=== PATIENT | female | born 1935 | race Caucasian/White ===

== ENCOUNTER 2016-08-31 07:17 | Inpatient (IN) | payer OTHER ==
[2016-08-31] MEDS ORDERED: DIAZEPAM 5 MG TAB PO ONE (07:26)
[2016-08-31] MEDS ORDERED: diphenhydrAMINE 25 MG CAP PO ONE (07:26)
[2016-08-31] MEDS ORDERED: ASPIRIN EC 325 MG TAB PO ONE (07:26)
[2016-08-31] MEDS ORDERED: FAMOTIDINE 20 MG TAB PO ONE (07:26)
[2016-08-31] MEDS ORDERED: NS 1,000 ML IV ONE (07:26)
--- NOTE | 2016-08-31 07:44 | CPEKG ---
Heart Rate: 77 RR Interval: 779 P-R Interval: 121 QRSD Interval: 148 QT Interval: 488 QTC Interval: 553 P Avis: 50 QRS Avis: 0 EKG Severity - ABNORMAL ECG - EKG Impression: ATRIAL-SENSED VENTRICULAR-PACED RHYTHM Electronically Signed By: Bin Tolbert 31-Aug-2016 07:46:24
[2016-08-31 08:12] LABS: % IMMATURE GRANULYOCYTES 0.4 % (0.0-1.1); ABSOLUTE IMMATURE GRANULOCYTES 0.02 10^3/uL (0.00-0.10); ADD DIFF? NO; ADD MORPH? NO; ADD SCAN? NO; ATYPICAL LYMPHOCYTE FLAG 10 (0-99); FRAGMENT RBC FLAG 0 (0-99); HEMOGLOBIN 12.8 g/dL (12.6-16.3); LEFT SHIFT FLG 0 (0-99); LIPEMIA HEMOLYSIS FLAG 90 (0-99); MEAN CELL HEMOGLOBIN 32.3 pg (27.9-34.1); MEAN CELL HEMOGLOBIN CONCENTR. 34.6 g/dL (32.4-36.7); MEAN CELL VOLUME 93.4 fL (81.5-99.8); MEAN PLATELET VOLUME 9.3 fL (8.7-11.7); PLATELET CLUMPS FLAG 0 (0-99); PLATELET COUNT 190 10^3/uL (150-400); RED BLOOD CELL COUNT 3.96 10^6/uL (4.18-5.33); RED CELL DISTRIBUTION WIDTH 11.6 % (11.5-15.2)
[2016-08-31 08:21] LABS: PROTIME(PATIENT) 13.1 SEC (12.0-15.0)
[2016-08-31 08:33] LABS: ANION GAP 12 mEq/L (8-16); CALCIUM 9.1 mg/dL (8.5-10.4); CARBON DIOXIDE 26 mEq/l (22-31); CHLORIDE 104 mEq/L (97-110); CHOLESTEROL 202 mg/dL (140-220); CHOLESTEROL/HDL RATIO 4.93 RATIO (1.00-4.44); CREATININE 0.7 mg/dL (0.6-1.0); GLOMERULAR FILTRATION RATE > 60; GLUCOSE 102 mg/dL (70-100); HIGH DENSITY LIPOPROTEIN 41 mg/dL (40-85); LDL/HDL RATIO 3.15 RATIO (1.00-3.22); LOW DENSITY LIPOPROTEIN 129 mg/dL (80-100); MAGNESIUM 2.2 mg/dL (1.6-2.3); NON-HIGH DENSITY LIPOPROTEIN 161 mg/dL (90-129); POTASSIUM 4.3 mEq/L (3.5-5.2); SODIUM 142 mEq/L (134-144); TRIGLYCERIDE 160 mg/dL (35-135); VERY LOW DENSITY LIPOPROTEINS 32 mg/dL (8-25)
[2016-08-31] MEDS ORDERED: IOPAMIDOL (ISOVUE-370) 150 ML BTL IV ONE ×4 (09:04→10:43)
[2016-08-31] MEDS ORDERED: fentaNYL 100 MCG/2 ML INJ ONE ×2 (09:04→10:30)
[2016-08-31] MEDS ORDERED: MIDAZOLAM 2 MG/2 ML VIAL ONE (09:04)
[2016-08-31] MEDS ORDERED: LIDOCAINE 1% 300 MG/30 ML SDV ONE (09:04)
[2016-08-31] MEDS ORDERED: BIVALIRUDIN 250 MG/5 ML VIAL IV ONE ×2 (09:42→10:44)
[2016-08-31] MEDS ORDERED: NITROGLYCERIN 1,500 MCG/15 ML VIAL MISC ONE (09:42)
--- NOTE | 2016-08-31 10:02 | PDDXCAT ---
Diagnostic Cath Note - . Date: 08/31/16 Impregnator And Drier: Dayanna Indication: Class I/II angina, intolerance to med therapy or failure to respond High-risk criteria on non-invasive testing: stress-induced moderate-size multiple perfusion defects - Procedure Access: right groin Procedure: left heart catheterization, coronary angiography, left ventriculogram - Materials Left Heart Cath size: 6F Left Heart Cath materials: standard multipack (JL4, JR4, pigtail) - Findings-Left Heart Catheterization LM: short, bifurcation into the LAD and LCX. no luminal irregularities noted LAD: medium sized vessel with two diagonals. just proximal to D1, there is a critical lesion (>80%). There was some ostial D1 disease as well (50%). D2 is smallish, but without luminal irregularities. tortuosity is noted distally LCX: dominant vessel with two principal obtuse marginals. Large diameter vessel. There was a 50% lesion to the ostial/proximal OM1. Distal tortuosity noted. No luminal irregularities to the remainder of the LCX system. LCX supplies the PDA territory RCA: Small diameter vessel. No luminal irregularities noted. Minor tortuosity appreciated. EDP: 27 mm Hg LVEF: 40-45% Wall motion: Anterior hypokinesis was noted. Mild global hypokinsis as well. Complications: none Estimated blood loss: <50ml Assessment: Critical lesion to the mid LAD (in the territory of the perfusion defect on MPI). Mild reduction in LVEF (40-45%) with anterior hypokinesis noted. Plan: Dr. Flip Truong to perform PCI to the proximal LAD lesion Intervention: pending to mid proximal LAD
[2016-08-31] MEDS ORDERED: NITROGLYCERIN/D5W 50 MG/250 ML BOTTLE IV ONE (11:02)
[2016-08-31] MEDS ORDERED: PRASUGREL HCL 10 MG TAB ONE (11:10)
[2016-08-31] MEDS ORDERED: TEMAZEPAM 15 MG CAP PO PRN (11:18)
[2016-08-31] MEDS ORDERED: NITROGLYCERIN 0.4 MG BTL SL PRN (11:18)
[2016-08-31] MEDS ORDERED: ACETAMINOPHEN 325 MG TAB PO PRN (11:18)
[2016-08-31] MEDS ORDERED: PRASUGREL HCL 10 MG TAB PO ONE (11:18)
[2016-08-31] MEDS ORDERED: HYDROCODONE/APAP 5/325 TAB PO PRN (11:18)
[2016-08-31] MEDS ORDERED: ATROPINE SULFATE 1 MG/10 ML SYR IVP PRN (11:18)
[2016-08-31] MEDS ORDERED: NS 1,000 ML IV SCH (11:30)
[2016-08-31] MEDS ORDERED: EPTIFIBATIDE 100 ML IV SCH (11:30)
--- NOTE | 2016-08-31 11:52 | CPEKG ---
Heart Rate: 87 RR Interval: 690 P-R Interval: 128 QRSD Interval: 174 QT Interval: 488 QTC Interval: 587 P Guinda: 49 QRS Guinda: 0 T Wave Guinda: 44 EKG Severity - ABNORMAL ECG - EKG Impression: ATRIAL-SENSED VENTRICULAR-PACED RHYTHM Electronically Signed By: Bin Tolbert 31-Aug-2016 15:07:20
[2016-08-31 12:29] LABS: CREATINE KINASE-MB FRACTION 0.27 ng/mL (0-3.19)
[2016-08-31] MEDS ORDERED: NITROGLYCERIN/DEXTROSE 250 ML IV SCH (12:30)
--- NOTE | 2016-08-31 13:15 | CPIP ---
[f rep st] INVASIVE CARDIAC PROCEDURE PROCEDURE PERFORMED: Percutaneous coronary intervention of the left anterior descending. INDICATIONS: Please refer to the diagnostic cardiac cath report dictated by Dr. Kurt Alan. Brief ly, the patient is a 80-year-old female with a history of nonischemic cardiomyopathy (status post bi ventricular pacemaker/defibrillator implantation), hyperlipidemia, and hypertension. She underwent evaluation for worsening dyspnea with exertion, and a pharmacologic nuclear stress test demonstrated a moderate area of anteroseptal ischemia. Diagnostic cardiac catheterization was performed which d emonstrated relatively preserved LV systolic function with an ejection fraction of at least 50%. Th e circumflex and RCA were free of any significant atherosclerosis. The kjzjzvqa-dt-olw LAD had a 70 % to 80% stenosis. The diseased area of the LAD included the origins of 2 mpzkd-uc-tilhdm sized candace gonal branches. The decision was made to perform percutaneous coronary intervention of the left ant erior descending. DETAILS OF PROCEDURE: The patient received intravenous Angiomax. The previously placed 6-Fijian sh eath in the right femoral artery was exchanged for a 7-Fijian sheath. A 7-Fijian CLS 3.5 guide cath eter was advanced to the left main. An Intuition guidewire was advanced to the distal LAD. Pre-dil atation of the lesion in the mshqeqqm-uw-jlr LAD was performed using a 2.75 x 10 mm cutting balloon. A 3.0 x 20 mm Synergy stent was then positioned and deployed at high pressure. Subsequent angiogr ams demonstrated 0% residual stenosis at the target lesion. The qwxga-zy-wcxeqh size 1st and 2nd di agonal branches were now occluded. Additionally, it was now also noted that there was a wire dissec tion at a significant curvature in the sgb-ql-jfipfa LAD with significant luminal compromise. The g uidewire was withdrawn into the mid LAD but left beyond the stented segment. A 2nd Intuition guidew gillian was advanced into the left anterior descending and was successfully negotiated into the distal L AD. The LAD now demonstrated complete occlusion at the junction of the mid and distal thirds. Ball oon inflations were performed at the site of the total occlusion using a 2.5 x 12 mm Emerge balloon. Minimal anterograde flow was restored. A 2.5 x 24 mm Synergy stent was advanced to the junction o f the mid and distal thirds of the LAD and was deployed at high pressure. This restored the true elidia men within the stented segment, but the apical portion of the LAD remained occluded. Additional inf lations were performed using the 2.5 x 12 mm Emerge balloon just distal to the stented segment, but no significant anterograde flow was restored. The initial Intuition guidewire was then inserted suc cessively into the 1st and 2nd diagonal branches. A 2.0 x 8 mm Emerge balloon was used to dilate th e ostia of both diagonal branches. However, anterograde flow was not restored. The patient remaine d hemodynamically stable. At this point, the procedure was terminated. CONCLUSIONS: 1. Successful percutaneous coronary intervention of the rlsniucn-vk-xmt left anterior descending us ing a single drug-coated stent. 2. Treatment of a guidewire-induced dissection in the ogi-dx-wplhtg left anterior descending using a single drug-coated stent; however, the apical portion of the left anterior descending remains occl uded. /[id number]/MODL
[2016-08-31] MEDS: CARVEDILOL 25 MG TAB PO SCH (18:22)
[2016-08-31 18:59] LABS: CK-MB INTERPRETATION POSITIVE (NEGATIVE)
[2016-08-31] MEDS: DULoxetine 60 MG CAP PO SCH (21:38)
--- NOTE | 2016-08-31 22:02 | CPEKG ---
Heart Rate: 90 RR Interval: 667 P-R Interval: 168 QRSD Interval: 160 QT Interval: 436 QTC Interval: 534 P Casselberry: -51 QRS Casselberry: -63 T Wave Casselberry: 38 EKG Severity - ABNORMAL ECG - EKG Impression: ATRIAL-SENSED VENTRICULAR-PACED RHYTHM Electronically Signed By: Bin Tolbert 01-Sep-2016 08:58:14
[2016-08-31] MEDS: NITROGLYCERIN 2% 1 GM PACKET TP SCH (23:30)
[2016-09-01 04:39] LABS: % IMMATURE GRANULYOCYTES 0.2 % (0.0-1.1); ABSOLUTE IMMATURE GRANULOCYTES 0.02 10^3/uL (0.00-0.10); ADD DIFF? NO; ADD MORPH? NO; ADD SCAN? NO; ATYPICAL LYMPHOCYTE FLAG 0 (0-99); FRAGMENT RBC FLAG 0 (0-99); HEMOGLOBIN 13.2 g/dL (12.6-16.3); LEFT SHIFT FLG 10 (0-99); LIPEMIA HEMOLYSIS FLAG 90 (0-99); MEAN CELL HEMOGLOBIN 31.7 pg (27.9-34.1); MEAN CELL HEMOGLOBIN CONCENTR. 33.8 g/dL (32.4-36.7); MEAN CELL VOLUME 93.8 fL (81.5-99.8); MEAN PLATELET VOLUME 9.5 fL (8.7-11.7); PLATELET CLUMPS FLAG 0 (0-99); PLATELET COUNT 188 10^3/uL (150-400); RED BLOOD CELL COUNT 4.16 10^6/uL (4.18-5.33); RED CELL DISTRIBUTION WIDTH 11.7 % (11.5-15.2)
[2016-09-01 04:46] LABS: ALBUMIN 4.5 g/dL (3.5-5.0); ANION GAP 13 mEq/L (8-16); ASPARTATE AMINOTRANSFERASE 304 IU/L (14-46); BILIRUBIN,TOTAL 0.5 mg/dL (0.1-1.4); CARBON DIOXIDE 29 mEq/l (22-31); CHLORIDE 100 mEq/L (97-110); CREATININE 0.7 mg/dL (0.6-1.0); GLOMERULAR FILTRATION RATE > 60; GLUCOSE 133 mg/dL (70-100); LACTATE DEHYDROGENASE 1193 IU/L (313-618); MAGNESIUM 2.2 mg/dL (1.6-2.3); POTASSIUM 4.5 mEq/L (3.5-5.2); SODIUM 142 mEq/L (134-144)
[2016-09-01 04:56] LABS: CK-MB INTERPRETATION POSITIVE (NEGATIVE)
[2016-09-01] MEDS: NITROGLYCERIN 2% 1 GM PACKET TP SCH ×3 (05:23→17:51)
--- NOTE | 2016-09-01 09:01 | CPEKG ---
Heart Rate: 96 RR Interval: 625 P-R Interval: 124 QRSD Interval: 166 QT Interval: 428 QTC Interval: 541 P Thomson: -66 QRS Thomson: 140 T Wave Thomson: 35 EKG Severity - ABNORMAL ECG - EKG Impression: ATRIAL-SENSED VENTRICULAR-PACED RHYTHM Electronically Signed By: Bin Tolbert 01-Sep-2016 09:47:44
[2016-09-01] MEDS: ONDANSETRON 4 MG/2 ML VIAL IVP PRN (09:23)
[2016-09-01] MEDS: amLODIPine BESYLATE 5 MG TAB PO SCH (09:24)
[2016-09-01] MEDS: CALCIUM CARB W/VIT D 500 MG TAB PO SCH (09:24)
[2016-09-01] MEDS: CARVEDILOL 25 MG TAB PO SCH ×2 (09:24→17:51)
[2016-09-01] MEDS: EZETIMIBE 10 MG TAB PO SCH (09:24)
[2016-09-01] MEDS: ASPIRIN EC 325 MG TAB PO SCH (09:24)
[2016-09-01] MEDS: PRASUGREL HCL 10 MG TAB PO SCH (09:24)
[2016-09-01] MEDS: VALSARTAN 40 MG TAB PO SCH (10:03)
[2016-09-01 12:53] LABS: CK-MB INTERPRETATION POSITIVE (NEGATIVE)
--- NOTE | 2016-09-01 13:13 | ECHO ---
[id number] + + [address] : : [place] [address] : : [phone] + + Adult Echocardiographic Report + -----+ :Name: GREGORY NUNES LStudy Date: 09/01/2016 12:40 PM : : Hospital Admission Number: [id number] Location : 245: :: 1935 Gender: Female : :Age: 80 yrs Race: WH : :Reason For Study: Post stent/Eval for pericardial effusion : + -----+ Left Ventricle The left ventricle is normal in size. There is normal left ventricular wall thickness. The left ventricular ejection fraction is normal. The left ventricular wall motion is normal. Right Ventricle The right ventricle is grossly normal size. There is a pacemaker lead in the right ventricle. The right ventricular systolic function is normal. Pericardium/Pleural Fat pad vs. trace pericardial effusion. Conclusion Limited 2-D echo. Limited views available for evaluation - implants. (1) Normal left ventricular systolic ejection fraction (2) Normal chamber dimensions (3) Pericardial fat pat - no evidence for pericardial effusion Final Reading Physician: Joan Salas signed on 09/01/2016 01:11 PM Ordering Physician: Kurt Alan Performed By: Elizabeth Graves RDCS
--- NOTE | 2016-09-01 13:54 | PDCARPN ---
Cardiology Progress Note Chief Complaint: Chest pains were noted overnight Assessment/Plan: Assessment: Patient is a 80 y/o female with history of non ischaemic CMP in the past (with ICD), SSS s/p ICD (pacing), HTN, and HLP, who presented to [facility] for scheduled angiogram given shortness of breath with an abnormal stress test. Angiogram yesterday with a critical lesion to the proximal/mid LAD and PCI was performed. Distally, there was a dissection noted from the guide wire, and second PCI was successfully performed. In proximity to the more proximal stent, "jailing" of two diagonals (small) was also noted. Chest pains were noted through the night, and treated with morphine. Today, the patient reports that she is feeling well, but continues to have some degree of chest pains when the pain medications wear off. Echocardiogram (limited) was performed to ensure no new changes (pericardial effusion or new wall motion abnormalities). Limitations to wall motion were noted given past chest surgery. No significant pericardial effusion was noted. Elevation to cardiac biomarkers was noted (and expected) with peak troponin (at present) to 32.1. Plan: (1) Maintain therapy on ASA and Effient given the newly stented LAD (2) Diovan, Coreg, and Norvasc to continue for HTN management assistance (3) Zetia should continue for assistance with HLP history (4) Will monitor labs to ensure that the troponin levels are trending down ( normalizing) (5) Patient will need cardiac rehab Subjective: Ongoing chest discomfort is reported, but controlled with medical therapy Objective: Vital Signs (8 Hrs) Temp Pulse Resp BP Pulse Ox 09/01/16 12:00 36.6 C 90 16 116/59 L 95 09/01/16 07:52 36.6 C 100 16 125/69 H 98 Intake/Output (24 Hrs) 08/31/16 09/01/16 09/02/16 05:59 05:59 05:59 Intake Total 365.6 Output Total 1400 Balance -1034.4 Intake: Oral (ml) 350 IV Infused (ml) 15.6 Nitroglycerin/Dextrose 15.6 250 ml @ 3 mls/hr IV CONT NEL Rx#:[id number] Output: Urine (ml) 1400 Bedpan 400 Bedside Commode 1000 Other: Weight 81.6 kg 83.6 kg Number of Voids Bedpan 1 Incontinence 3 Result Diagrams: 09/01/16 04:10 09/01/16 04:10 Cardiac Labs: Cardiac Lab Results (72 Hrs) 09/01/16 09/01/16 09/01/16 12:10 08:01 04:10 CK-MB (CK-2) Fraction 107.00 H 140.00 H Troponin I 32.100 H 31.500 H 08/31/16 08/31/16 08/31/16 22:00 18:28 11:40 CK-MB (CK-2) Fraction 49.60 H 0.27 Troponin I 25.900 H EKG: A sense V pacing Echocardiogram: No appreciable pericardial effusion was noted Wall motion assessment not possible given chest wall artifact - Physical Exam Constitutional: WDWN, healthy appearing, no apparent distress Eyes: PERRL, EOMI Ears, Nose, Mouth, Throat: moist mucous membranes Cardiovascular: regular rate and rhythm, no murmurs, no rubs Peripheral Pulses: 2+: dorsalis-pedis (R), dorsalis-pedis (L) Respiratory: clear to auscultate bilat, no crackles Gastrointestinal: normoactive bowel sounds Skin: no rashes, no edema Musculoskeletal: no muscular tenderness Neurologic: AAOx3, CN II-XII grossly intact Psychiatric: cooperative, interactive, following commands ICD10 Worksheet Patient Problems: Problems Problem Status Onset Coronary artery disease Acute
[2016-09-01] MEDS: DULoxetine 60 MG CAP PO SCH (20:30)
[2016-09-02] MEDS: NITROGLYCERIN 2% 1 GM PACKET TP SCH ×3 (00:13→13:24)
[2016-09-02 05:02] LABS: CK-MB INTERPRETATION POSITIVE (NEGATIVE)
[2016-09-02] MEDS: ASPIRIN EC 325 MG TAB PO SCH (08:23)
[2016-09-02] MEDS: PRASUGREL HCL 10 MG TAB PO SCH (08:24)
[2016-09-02] MEDS: EZETIMIBE 10 MG TAB PO SCH (08:24)
[2016-09-02] MEDS: CALCIUM CARB W/VIT D 500 MG TAB PO SCH (08:24)
[2016-09-02] MEDS: amLODIPine BESYLATE 5 MG TAB PO SCH (08:25)
[2016-09-02] MEDS: VALSARTAN 40 MG TAB PO SCH (08:25)
[2016-09-02] MEDS: CARVEDILOL 25 MG TAB PO SCH ×2 (08:25→19:04)
[2016-09-02] MEDS: ONDANSETRON 4 MG/2 ML VIAL IVP PRN (08:28)
--- NOTE | 2016-09-02 10:25 | PDCARPN ---
Cardiology Progress Note Chief Complaint: No cardiovascular complaints were voiced today. Mild shoulder pains were noted today. Good sleep overnight. Assessment/Plan: Assessment: 09-02-16 Patient doing better today. Yesterday, chest pains were still being noted. Today, there is mild bilateral shoulder pains. Troponin has continued to trend down. Limited ambulation (given the ICU/step down status, and poor sleep from the night before). 09-01-16 Patient is a 80 y/o female with history of non ischaemic CMP in the past (with ICD), SSS s/p ICD (pacing), HTN, and HLP, who presented to [facility] for scheduled angiogram given shortness of breath with an abnormal stress test. Angiogram yesterday with a critical lesion to the proximal/mid LAD and PCI was performed. Distally, there was a dissection noted from the guide wire, and second PCI was successfully performed. In proximity to the more proximal stent, "jailing" of two diagonals (small) was also noted. Chest pains were noted through the night, and treated with morphine. Today, the patient reports that she is feeling well, but continues to have some degree of chest pains when the pain medications wear off. Echocardiogram (limited) was performed to ensure no new changes (pericardial effusion or new wall motion abnormalities). Limitations to wall motion were noted given past chest surgery. No significant pericardial effusion was noted. Elevation to cardiac biomarkers was noted (and expected) with peak troponin (at present) to 32.1. Plan: (1) Transfer of the patient from the ICU to the PCU today - possible discharge to home this evening - will continue to monitor telemetry (2) Would continue Norvasc, Diovan, and Coreg for history of HTN (3) ASA and Effient to continue (4) Outpatient follow up with cardiology in 1 week (5) Patient needs to have cardiac rehab set up prior to discharge Subjective: Shoulder pains are being noted. Reviewed/Discussed With: multidisciplinary team Objective: Vital Signs (8 Hrs) Temp Pulse Resp BP Pulse Ox 09/02/16 08:00 36.8 C 104 H 18 121/67 H 95 09/02/16 04:00 37.7 C 92 22 H 118/52 L 96 Intake/Output (24 Hrs) 09/01/16 09/02/16 09/03/16 05:59 05:59 05:59 Intake Total 365.6 380 Output Total 1400 1100 Balance -1034.4 -720 Intake: Oral (ml) 350 380 IV Infused (ml) 15.6 Nitroglycerin/Dextrose 15.6 250 ml @ 3 mls/hr IV CONT NEL Rx#:[id number] Output: Urine (ml) 1400 1100 Bedpan 400 Bedside Commode 1000 1100 Other: Weight 81.6 kg 83.6 kg Number of Voids Bedpan 1 Bedside Commode 2 Incontinence 3 Result Diagrams: 09/01/16 04:10 09/01/16 04:10 Cardiac Labs: Cardiac Lab Results (72 Hrs) 09/02/16 09/01/16 09/01/16 04:15 12:10 08:01 CK-MB (CK-2) Fraction 36.50 H 107.00 H Troponin I 16.800 H 32.100 H 09/01/16 08/31/16 08/31/16 04:10 22:00 18:28 CK-MB (CK-2) Fraction 140.00 H 49.60 H Troponin I 31.500 H 25.900 H 08/31/16 11:40 CK-MB (CK-2) Fraction 0.27 Troponin I Telemetry: Atrial sense V pace - Physical Exam Constitutional: WDWN, healthy appearing, no apparent distress Eyes: PERRL, EOMI Ears, Nose, Mouth, Throat: moist mucous membranes Cardiovascular: regular rate and rhythm, systolic murmur, No jugular vein distention Peripheral Pulses: 2+: dorsalis-pedis (R), dorsalis-pedis (L) Respiratory: clear to auscultate bilat, no crackles Gastrointestinal: normoactive bowel sounds Skin: no edema Musculoskeletal: muscular tenderness Neurologic: AAOx3, CN II-XII grossly intact Psychiatric: cooperative, interactive, following commands ICD10 Worksheet Patient Problems: Problems Problem Status Onset Coronary artery disease Acute
[2016-09-02] MEDS: DULoxetine 60 MG CAP PO SCH (20:05)
[2016-09-03 08:08] VITALS: TEMP 98.3
[2016-09-03] MEDS ORDERED: ATORVASTATIN CALCIUM 40 MG TAB PO SCH (09:30)
[2016-09-03] MEDS: CARVEDILOL 25 MG TAB PO SCH (10:07)
[2016-09-03] MEDS: ASPIRIN EC 325 MG TAB PO SCH (10:11)
[2016-09-03] MEDS: amLODIPine BESYLATE 5 MG TAB PO SCH (10:11)
[2016-09-03] MEDS: EZETIMIBE 10 MG TAB PO SCH (10:12)
[2016-09-03] MEDS: CALCIUM CARB W/VIT D 500 MG TAB PO SCH (10:12)
[2016-09-03] MEDS: VALSARTAN 40 MG TAB PO SCH (10:12)
[2016-09-03] MEDS: PRASUGREL HCL 10 MG TAB PO SCH (10:12)
--- NOTE | 2016-09-03 11:52 | GDS ---
[f rep st] DISCHARGE SUMMARY DISCHARGE DIAGNOSES: 1. Worsening dyspnea on exertion, found to have a 70% to 80% proximal LAD stenosis, status post PTC A and stenting, complicated by occlusion of the first and second diagonals, and wire dissection of t he mid to distal LAD with significant luminal compromise. This resulted in complete occlusion of th e mid and distal thirds of the LAD. Balloon inflations were performed at the site of the total occl usion, but minimal anterograde flow was restored. A Synergy stent was placed in the mid to distal t hirds, which restored the true lumen within the stented segment, but apical portion of the LAD remai sherri occluded. Despite additional ballooning, there was no significant antegrade flow restored. 2. History of nonischemic cardiomyopathy with a chronic left bundle branch block. 3. Biventricular permanent pacemaker. 4. Congregational of normal ejection fraction, status post biventricular pacer. 5. Dyslipidemia. 6. Hypertension. PROCEDURES: 1. Left heart catheterization. 2. Percutaneous intervention to LAD. 3. A 09/01/2016 echocardiogram, which showed normal ejection fraction. BRIEF HISTORY: Please see dictated history and physical from our office for complete details. In brief, the patient is a 80-year-old female with a history of nonischemic cardiomyopathy diagnosed 20 years ago, status post biventricular permanent pacemaker placement, chronic left bundle branch b lock, hypertension, dyslipidemia, nocturnal hypoxia, who presented to our office over the past few m onths with worsening dyspnea on exertion. She had a nuclear stress test done, which showed a mild a wil of moderate anteroseptal ischemia. She proceeded to a left heart catheterization for further ev aluation. 1. Abnormal MPI with progressively worsening dyspnea on exertion. She proceeded to left heart cath eterization, which showed the proximal to mid LAD stenosis. This was treated with PTCA and stenting , which resulted in occlusion of the small to moderate first and second diagonals. She also had a c omplication of a wire dissection requiring balloon and stenting. However, the apical portion remain ed occluded by the end of the procedure. Her troponin increased to 32. She was kept in-house for f urther observation due to ongoing chest pains requiring morphine. A limited echo showed no wall mot ion or pericardial effusion. She stabilized and transferred to telemetry. 2. Dyslipidemia. Her LDL is quite elevated at 129. We reviewed goal LDL, and she is agreeable to retry the atorvastatin. She has been on this in the past but that was several years ago. She does report that she noted myalgias on this. She is willing to see if symptoms recur at this point. She will need fasting lipids and CMP in 1 month's time. 3. Hypertension, blood pressures have actually been low. She is advised to hold her amlodipine for now. PHYSICAL EXAM: VITAL SIGNS: On day of discharge blood pressure 97/52, heart rate 94, respirations 14, O2 saturation 95% on 2 L. GENERAL: She is a very pleasant female in no apparent distress. YOUNG NT: Eyes are PERRL. HEART: Regular rate and rhythm. LUNGS: Clear. ABDOMEN: Soft with normoact may bowel sounds. Right groin site without ecchymosis, erythema or bruit. She has 1 to 2+ PT pulse s bilaterally. LABORATORY DATA: BMP with sodium 142, potassium 4.5, chloride 100, CO2 of 29, BUN 14, creatinine 0. 7, glucose 133, AST of 304. Peak troponin of 32. CBC with WBC of 8.42, hemoglobin 13.2, hematocrit 39, platelet count of 188. RESULTS PENDING: None. DIET: Cardiac. ACTIVITY: Groin precautions reviewed. She is also encouraged to join cardiac rehab. DISCHARGE MEDICATIONS: Please see medication reconciliation for complete details. She is being dis charged on the following agents: She is being started on atorvastatin 40 mg p.o. daily and Effient 10 mg p.o. daily. Her home carvedilol, valsartan, omeprazole, calcium, tramadol, melatonin, aspirin , and Cymbalta are being continued. She is being given a short prescription of [place]. She is advis ed to hold her amlodipine. DISCHARGE INSTRUCTIONS: 1. Followup with Dr. Alan as scheduled. 2. Followup CMP and lipids in 1 month's time. /[id number]/MODL
[2016-09-03 13:28] VITALS: BP 110/51; PULSE 96; RESP 16; O2SAT 92
[2016-09-05 15:51] LABS: 2C19S INTERPRETATION See Comments
== END 2016-09-03 13:34 | disposition home or self-care (01) | DRG 247 ==
LOC: FCATH 07:17 → F2W 11:25 → OBSVTOIN 11:25 → F2N 13:32 → F2W 09-02 11:23 → UNDODISIN 09-03 13:25
PROVIDERS: ADMIT Internal Medicine Interventional Cardiology; ATTEND Internal Medicine Cardiovascular Disease
PROC: B2151ZZ Fluoroscopy of Left Heart using Low Osmolar Contrast (ICD-10-PCS; principal; 2016-08-31)
PROC: B2111ZZ Fluoroscopy of Multiple Coronary Arteries using Low Osmolar Contrast (ICD-10-PCS; principal; 2016-08-31)
PROC: 4A023N7 Measurement of Cardiac Sampling and Pressure, Left Heart, Percutaneous Approach (ICD-10-PCS; principal; 2016-08-31)
PROC: 027034Z Dilation of Coronary Artery, One Artery with Drug-eluting Intraluminal Device, Percutaneous Approach (ICD-10-PCS; principal; 2016-08-31)
DX: I25.10 Atherosclerotic heart disease of native coronary artery without angina pectoris (principal); I42.9 Cardiomyopathy, unspecified; I44.7 Left bundle-branch block, unspecified; I10 Essential (primary) hypertension; E78.5 Hyperlipidemia, unspecified; Z95.0 Presence of cardiac pacemaker
CPT/HCPCS: 81225-90; C1725; C1760; C1769; C1874; C1887; C9600; J0583; J1644; J2250; J2405; J3010; Q9967

== ENCOUNTER → 2018-03-23 | Outpatient (CLI) | payer OTHER | LOC: CIMAGING 15:54 | PROVIDERS: ATTEND Physician Assistant Surgical | DX: M47.892 Other spondylosis, cervical region (principal); M89.38 Hypertrophy of bone, other site | CPT/HCPCS: 72050-PO ==

== ENCOUNTER 2018-04-06 13:35 | Inpatient (IN) | payer OTHER ==
[2018-04-06] MEDS ORDERED: ASPIRIN 81 MG CHEWABLE TAB PO ONE (13:51)
[2018-04-06] MEDS ORDERED: FUROSEMIDE 20 MG/2 ML VIAL IVP ONE (14:30)
[2018-04-06] MEDS ORDERED: NITROGLYCERIN 2% 1 GM PACKET TP ONE (14:32)
--- NOTE | 2018-04-06 15:12 | EDPHY ---
H & P Stated Complaint: SOB, midsternal chest pain x 1 month Time Seen by Provider: 04/06/18 13:45 HPI/ROS: This patient describes a 1 month history of gradually increasing dyspnea associated with paroxysmal nocturnal dyspnea over the past week. She reports dyspnea on exertion as well. She had an noticed significant orthopnea. She also describes sharp pains in her chest over the past few days, she describes this as brief pain that is been more frequent over the past 24 hr. She states that this is more prevalent when she is sitting up when she lies supine. She notes no other exacerbating factors. She had the pain shortly prior to arrival but resolved shortly after arrival here in during my interview she denies any chest pain. She is accompanied by her son. They came here by private vehicle. ROS: Constitutional: No fevers or chills. HEENT: She denies any recent URI symptoms. Pulmonary: She has occasional cough over the past month a but no significant sputum production. No hemoptysis. Cardiovascular: She has not noticed any heart palpitations. She denies any significant lower extremity swelling. GI: No recent nausea or vomiting. Denies abdominal pain : No urinary symptoms Integumentary: No diaphoresis Neuro: No headache. No confusion. No focal neuro symptoms 10 point review of symptoms is performed and otherwise negative with exception of pertinent positives and negatives listed in HPI and ROS Source: Patient Exam Limitations: No limitations - Personal History Current Tetanus Diphtheria and Acellular Pertussis (TDAP): Yes Tetanus Vaccine Date: within 10 year - Medical/Surgical History Hx Asthma: No Hx Chronic Respiratory Disease: No Hx Diabetes: No Hx Cardiac Disease: Yes Hx Renal Disease: No Hx Cirrhosis: No Hx Alcoholism: No Hx HIV/AIDS: No Hx Splenectomy or Spleen Trauma: No Other PMH: Pacemaker, back surgery, L breast cancer with bilat masectomy - Family History Significant Family History: No pertinent family hx - Social History Smoking Status: Former smoker Alcohol Use: None Drug Use: None - Physical Exam Exam: General Appearance: Alert, no distress. Eyes: Pupils equal and round no pallor or injection. ENT, Mouth: Mucous membranes moist. Respiratory: Diminished breath sounds at the bases. Appreciate no rales or rhonchi. Cardiovascular: Regular rate and rhythm. Gastrointestinal: Abdomen is soft and nontender, no masses, bowel sounds normal. Neurological: [ ] Skin: Warm and dry, no rashes. Musculoskeletal: Neck is supple nontender. Extremities are symmetrical, full range of motion. Psychiatric: Patient is oriented X 3, there is no agitation. DIFFERENTIAL DIAGNOSIS: After history and physical exam differential diagnosis was considered for [ ] Constitutional: Initial Vital Signs O2 Sat (%) 94 04/06/18 13:56 O2 (L/minute) 2 Allergies/Adverse Reactions: Sulfa (Sulfonamide Antibiotics) Allergy (Verified 04/06/18 13:41) Pt reports STOMACH PAIN ENVIRONMENTAL Allergy (Uncoded 04/06/18 13:41) Pt reports Congestion Home Medications: Medication Instructions Recorded Aspirin [Aspirin 81mg (*)] 05/28/14 Calcium Carbonate/Vitamin D3 05/28/14 [Calcium 600-Vit D3 200 Tablet] Carvedilol [Coreg (*)] 05/28/14 Melatonin [Melatonin 5 mg] 05/28/14 DULoxetine [Cymbalta 60 MG (*)] 08/31/16 traMADol [Ultram 50 mg (*)] 08/31/16 Atorvastatin Calcium [Lipitor 40 04/06/18 mg (*)] Effient 04/06/18 Medical Decision Making - Diagnostics EKG Interpretation: 12 lead EKG performed shortly after arrival indication chest pain at 1:49 p.m. Reveals AV paced with capture 107 no further analysis attempted due to pacemaker Imaging Results: Imaging Impressions Chest X-Ray 04/06/18 13:52 Impression: Moderate cardiomegaly with interstitial pulmonary edema. Bibasilar opacities likely represent pleural effusions with compressive atelectasis. Superimposed pneumonia is less likely unless patient demonstrates infectious symptoms. ED Course/Re-evaluation: IV, O2, monitor Aspirin 324 chewed 0.5 in nitropaste 20 mg of Lasix with diuresis I spoke with Dr. Idalmis Jacques, hospitalist at [facility] accepts the patient for transfer Discussion: Patient with history of coronary artery disease with stents and pacemaker with capture who presents with new onset of CHF gradual over the past month. She has atypical chest pains here within normal 1st troponin and normal D-dimer. Possibilities for etiology of this include recurrence of coronary syndrome versus dietary indiscretions with increased sodium intake, viral respiratory illness or other. Patient remains stable at 15 15 with PCU bed pending at the time of transfer to Dr. Vanegas. Discussed this patient's case with Dr. Vanegas At the time of sign-out patient is chest pain-free comfortable on nasal cannula O2 waiting a bed in transfer by EMS. - Data Points Laboratory Results: 04/06/18 04/06/18 04/06/18 14:02 14:01 13:55 POC Sodium 147 mEq/L H mEq/L (135-145) POC Potassium 3.6 mEq/L mEq/L (3.3-5.0) POC Chloride 105.0 mEq/L mEq/L (97-110) POC Total CO2 27 mEq/L mEq/L (22-31) POC BUN 17 mg/dL mg/dL (7-23) POC Creatinine 0.7 mg/dL mg/dL (0.6-1.0) POC Glucose 131 mg/dL H mg/dL (70-100) POC Calcium 9.2 mg/dL mg/dL (8.5-10.4) POC Troponin I 0.01 ng/mL ng/mL (0.00-0.08) NT-Pro-B Natriuret Pep Pending Medications Given: Discontinued Medications Aspirin (Aspirin) 324 mg PO EDNOW ONE Stop: 04/06/18 13:52 Last Admin: 04/06/18 13:59 Dose: 324 mg Furosemide (Lasix Injection) 20 mg IVP EDNOW ONE Stop: 04/06/18 14:31 Last Admin: 04/06/18 14:40 Dose: 20 mg Nitroglycerin (Nitro-Bid 2%) 0.5 inch TP EDNOW ONE Stop: 04/06/18 14:33 Last Admin: 04/06/18 14:40 Dose: 0.5 inch Point of Care Test Results: CBC CBC Collection Date 04/06/18 CBC Collection Time 13:55 WBC 6.2 RBC 4.15 HGB 13.2 HCT 38.8 PLT 191 Neut # 4.4 Neut 71.2 LYMPH # 1.3 LYMPH 21.2 Other WBC # 0.5 Other WBC 7.6 MCV 93.5 Chemistry 04/06/18 04/06/18 14:02 14:01 POC Sodium 147 mEq/L H mEq/L (135-145) POC Potassium 3.6 mEq/L mEq/L (3.3-5.0) POC Chloride 105.0 mEq/L mEq/L (97-110) POC Total CO2 27 mEq/L mEq/L (22-31) POC BUN 17 mg/dL mg/dL (7-23) POC Creatinine 0.7 mg/dL mg/dL (0.6-1.0) POC Glucose 131 mg/dL H mg/dL (70-100) POC Calcium 9.2 mg/dL mg/dL (8.5-10.4) POC Troponin I 0.01 ng/mL ng/mL (0.00-0.08) Basic Metabolic Panel BMP Collection Date 04/06/18 BMP Collection Time 13:55 D-Dimer D-Dimer Collection Date 04/06/18 D-Dimer Collection Time 13:55 D-Dimer (ng/ml) 323 Departure - Departure Disposition: [facility] Inpatient Acute Clinical Impression: New onset of congestive heart failure Chest pain Qualifiers: Chest pain type: unspecified Qualified Code(s): R07.9 - Chest pain, unspecified Condition: Good Referrals: NONE *PRIMARY CARE P,. [Primary Care Provider] - As per Instructions
--- NOTE | 2018-04-06 15:26 | CPEKG ---
Test Reason : OPEN Blood Pressure : / mmHG Vent. Rate : 107 BPM Atrial Rate : 106 BPM P-R Int : 140 ms QRS Dur : 155 ms QT Int : 428 ms P-R-T Axes : 054 -48 -23 degrees QTc Int : 571 ms Atrial-sensed ventricular-paced rhythm Confirmed by Branden Blandon ([id number]) on 04/06/2018 3:25:39 PM Referred By: Confirmed By:Branden Blandon
[2018-04-06] MEDS ORDERED: ACETAMINOPHEN 500 MG TAB PO ONE (15:42)
[2018-04-06] MEDS ORDERED: ONDANSETRON 4 MG/2 ML VIAL IVP PRN (18:26)
[2018-04-06] MEDS ORDERED: ONDANSETRON DISINTEGRATING 4 MG TAB PO PRN (18:26)
[2018-04-06] MEDS ORDERED: NITROGLYCERIN 0.4 MG BTL SL PRN (18:29)
[2018-04-06] MEDS ORDERED: traMADol 50 MG TAB PO PRN (19:32)
--- NOTE | 2018-04-06 19:32 | PDGENHP ---
History and Physical - Chief Complaint SOB, Chest Pain - History of Present Illness Lei Benítez is a 82 yo F with a PMHx of CAD s/p PCI in 08/2016, PPM for LBBB, Breast cancer who presents to [facility] for shortness of breath and chest pain. She reports that symptoms started about 1 month ago and have been getting worse. She describes gradually increasing dyspnea associated with paroxysmal nocturnal dyspnea over the past week. She reports dyspnea on exertion as well. She had an noticed significant orthopnea. She also describes sharp pains in her chest over the past few days, which have become more frequent over the past 24 hr. She denies any radiation of pain, no associated numbness/tingling, n/v, diaphoresis. She states that the pain gets worse when she is sitting up when she lies supine. History Information - Allergies/Home Medication List Allergies/Adverse Reactions: Sulfa (Sulfonamide Antibiotics) Allergy (Verified 04/06/18 19:24) Pt reports STOMACH PAIN ENVIRONMENTAL Allergy (Uncoded 04/06/18 13:41) Pt reports Congestion Home Medications: Aspirin [Aspirin 81mg (*)] 81 mg PO DAILY 05/28/14 [Last Taken 04/05/18] Calcium Carbonate/Vitamin D3 [Calcium 600-Vit D3 200 Tablet] 1 each PO BID 05/28 [Last Taken 04/05/18] Carvedilol [Coreg (*)] 50 mg PO BIDMEAL 05/28/14 [Last Taken 04/05/18] Melatonin [Melatonin 5 mg] 5 mg PO HS PRN 05/28/14 [Last Taken 05/27/14] traMADol [Ultram 50 mg (*)] 50 mg PO Q6H PRN 08/31/16 [Last Taken 08/30/16] Atorvastatin Calcium [Lipitor 40 mg (*)] 40 mg PO DAILY 04/06/18 [Last Taken 01/12] Clopidogrel Bisulfate [Clopidogrel] 75 mg PO DAILY 04/06/18 [Last Taken 04/05/18 ] Herbals/Supplements -Info Only 1 ea PO DAILY 04/06/18 [Last Taken Unknown] Irbesartan [Avapro] 300 mg PO DAILY 04/06/18 [Last Taken 04/05/18] QUEtiapine FUMARATE [Seroquel 100 mg (*)] 100 mg PO HS 04/06/18 [Last Taken 01/12] Venlafaxine HCl [Venlafaxine 75MG (*)] 150 mg PO BID 04/06/18 [Last Taken ] I have personally reviewed and updated: family history, medical history, social history, surgical history - Past Medical History coronary artery disease, cancer - Surgical History Reports: mastectomy - Family History Positive for: non-pertinent - Social History Smoking Status: Former smoker Alcohol Use: None Drug Use: None Review of Systems Review of Systems: ROS: 10pt was reviewed & negative except for what was stated in HPI & below Physical Exam Physical Exam: Temp Pulse Resp BP Pulse Ox 36.7 C 104 H 20 173/73 H 96 04/06/18 18:19 04/06/18 18:19 04/06/18 18:19 04/06/18 18:19 04/06/18 18:19 O2 (L/minute) 2 Constitutional: no apparent distress Eyes: PERRL Ears, Nose, Mouth, Throat: moist mucous membranes Cardiovascular: regular rate and rhythym Respiratory: reduced air movement Gastrointestinal: soft, non-tender abdomen Skin: warm Neurologic: AAOx3 Psychiatric: interacting appropriately Lab Data & Imaging Review POC Sodium 147 mEq/L (135-145) H 04/06/18 14:01 POC Potassium 3.6 mEq/L (3.3-5.0) 04/06/18 14:01 POC Chloride 105.0 mEq/L (97-110) 04/06/18 14:01 POC Total CO2 27 mEq/L (22-31) 04/06/18 14:01 POC BUN 17 mg/dL (7-23) 04/06/18 14:01 POC Creatinine 0.7 mg/dL (0.6-1.0) 04/06/18 14:01 POC Glucose 131 mg/dL (70-100) H 04/06/18 14:01 POC Calcium 9.2 mg/dL (8.5-10.4) 04/06/18 14:01 POC Troponin I 0.01 ng/mL (0.00-0.08) 04/06/18 14:02 NT-Pro-B Natriuret Pep 1630 pg/mL (0-450) H 04/06/18 13:55 Assessment & Plan Assessment: New onset of congestive heart failure (Acute) - Presents with 1 month of increasing MUÑOZ, Orthopnea - CXR on admission showing moderate cardiomegaly with interstitial pulmonary edema - TTE from 08/2016 shows normal EF - BNP elevated to 1630 on admission - S/p 20 mg IV Lasix in ED with patient reporting improvement in SOB - Will continue 20 mg IVP Lasix qd, redose as needed - Will repeat TTE - Monitor I/O, daily weights - Continue home Coreg, ARB Chest pain (Acute) - Reports increasing over past few days - Hx of CAD s/p PCI to LAD in 08/2016 - Initial Trop and EKG negative for ischemia - Will initiate chest pain protocol with serial Trop, EKG - If abnormalities above, consider stress test for further evaluation - PRN Nitro - S/p ASA in ED, continue home ASA, Statin, Plavix Depression - Continue home medications including Venlafaxine, Quetiapine FEN: Cardiac DVT PPx: Lovenox Code: FULL Dispo: Admit to Observation
[2018-04-06] MEDS: QUEtiapine FUMARATE 100 MG TAB PO SCH (21:19)
[2018-04-06] MEDS: VENLAFAXINE HCL 75 MG TAB PO SCH (21:19)
[2018-04-06] MEDS: CALCIUM CARB W/VIT D 500 MG TAB PO SCH (21:19)
[2018-04-06] MEDS: CARVEDILOL 25 MG TAB PO SCH (21:55)
[2018-04-06] MEDS: MELATONIN 3 MG TAB PO PRN (21:56)
[2018-04-06] MEDS: CLOPIDOGREL BISULFATE 75 MG TAB PO SCH (21:56)
[2018-04-07] MEDS: CARVEDILOL 25 MG TAB PO SCH ×2 (08:53→17:43)
[2018-04-07] MEDS: CLOPIDOGREL BISULFATE 75 MG TAB PO SCH (08:54)
[2018-04-07] MEDS: ASPIRIN 81 MG CHEWABLE TAB PO SCH (08:54)
[2018-04-07] MEDS: ENOXAPARIN 40 MG/0.4 ML SYR SC SCH (08:54)
[2018-04-07] MEDS: ATORVASTATIN CALCIUM 40 MG TAB PO SCH (08:54)
[2018-04-07] MEDS: CALCIUM CARB W/VIT D 500 MG TAB PO SCH ×2 (08:54→21:01)
[2018-04-07] MEDS: VENLAFAXINE HCL 75 MG TAB PO SCH ×2 (08:59→21:01)
[2018-04-07] MEDS ORDERED: Herbals/Supplements -Info Only PO SCH (09:00)
[2018-04-07] MEDS ORDERED: IRBESARTAN 150 MG TAB PO SCH (09:00)
[2018-04-07] MEDS ORDERED: FUROSEMIDE 20 MG/2 ML VIAL IVP SCH (09:00)
--- NOTE | 2018-04-07 10:14 | SOAPPROG ---
SWATHI Progress Note Assessment/Plan: Assessment: Cardiology consult performed and dictated. 82 y/o woman with CAD s/p PCI of LAD in 09/10, LBBB s/p PPM, HTN, and remote breast cancer admitted with one month of sharp, atypical CP and MUÑOZ at 50ft and has gained 10lbs in last six months. Clinicallly consistent with poorly controlled HTN and mild diastolic CHF. I do not think she is having unstable angina. PLAN: 1)change Lasix to 40mg IV BID 2)decrease Coreg to 25mg PO BID 3)start Imdur 30mg PO qam. 4)echo today and lexiscan cardiolite monday 5)probably home Monday AM 6)KCL 20 meq PO TID Thanks. Cardiology service will follow with you. 04/07/18 10:11 Objective: Vital Signs Temp Pulse Resp BP Pulse Ox 36.8 C 80 18 118/70 95 04/07/18 08:00 04/07/18 08:53 04/07/18 08:00 04/07/18 08:53 04/07/18 08:00 Laboratory Results 04/07/18 08:19 04/07/18 08:19 04/06/18 04/07/18 04/08/18 05:59 05:59 05:59 Intake Total 300 Output Total 850 Balance -550 ICD10 Worksheet Patient Problems: Problems Problem Status Onset Chest pain Acute New onset of congestive heart failure Acute Coronary artery disease Acute
--- NOTE | 2018-04-07 11:24 | ASMTCMCOM ---
CM Note CM Note Notes: Patient admitted w MUÑOZ, atypical CP, and weight gain and found to have new onset CHF. She is receiving IV Lasix and will have echo today and Lexiscan tomorrow. She is normally independent and lives alone. Has a local son and daughter. PT has cleared for home. CM available if she has any d/c needs. Date Signed: 04/07/2018 11:23 AM Electronically Signed By:Eleni Frank RN
[2018-04-07] MEDS ORDERED: CEPACOL LOZENGE PO PRN (11:56)
--- NOTE | 2018-04-07 11:56 | HOSPPROG ---
Hospitalist Progress Note Assessment/Plan: DIAGNOSES: * Acute systolic congestive heart failure with new recurrence of severe cardiomyopathy and left ventricular dysfunction, now with inferior hypokinesis -discharge antral diagnosis includes hypertensive disease, ischemic disease, viral illness, and a variety of other possible causes * Atypical chest pain recent onset, known hx of CAD and a stent * Uncontrolled hypertension in the outpatient setting at this time is improved today with medication -notably the patient denies use of decongestants, illicit drugs, alcohol * Coronary artery disease with prior stent * History of breast cancer I reviewed the patient's case in detail this morning with Dr. Sonu Pastor Patient seen by me today on hospitals rounds as well as multidisciplinary rounds PLANS: * Continue diuresis * Blood pressure management will continue current medicines and follow very closely, clearly needs excellent blood pressure control at all times * Plan had been for stress with myocardial perfusion imaging tomorrow, however with new change in ejection fraction to this low level will review with Cardiology to see if possibly angiography may be more prudent * Will check TSH and iron levels to be sure these are in good range I have discussed the echocardiograph results in detail with the patient and reviewed differential diagnosis and diagnostic workup. We have reviewed the need for aggressive blood pressure management at all times. SUBJECTIVE: Patient feeling better with diuresis so far Denies angina type symptoms today OBJECTIVE Vitals reviewed: Blood pressures improved, other vitals stable without fever Internal Audit Director, my review: Sinus Exam: alert oriented skin warm dry color ok resps not labored lungs clear but diminished BSs heart regular abd soft nondistended nontender, bowel sounds present limbs warm, still with some mild edema iv site ok Lab data: Metabolic panel, CBC, and troponins all unremarkable Echocardiography: I reviewed the results of today's echo study and compared with the most recent hospital based study done in August of 2016. She had ejection fraction 18 months ago of greater than 50% with no wall motion abnormalities. Today's echo showed ejection fraction of 17% with inferior wall motion abnormalities. Notably the patient tells me that she had ejection fraction of approximately 15% some years ago when she 1st developed heart disease. She says [facility] but no cause of her congestive heart failure was found that she is aware of. She was treated with angiotensin medicines beta-tereza since then and has done well until this episode. Objective: Vital Signs Temp Pulse Resp BP Pulse Ox 36.7 C 74 18 115/50 L 93 01/12/19 11:53 04/07/18 11:53 04/07/18 11:53 04/07/18 11:53 04/07/18 11:53 Laboratory Results 04/07/18 08:19 04/07/18 08:19 04/06/18 04/07/18 04/08/18 06:59 06:59 06:59 Intake Total 300 Output Total 850 Balance -550 - Time Spent With Patient Time Spent with Patient: greater than 35 minutes Time Spent with Patient: Greater than 35 minutes spent on this patients care, greater than 50% of time spent counseling, educating, and coordinating care regarding the above mentioned plan. ICD10 Worksheet Patient Problems: Problems Problem Status Onset Chest pain Acute New onset of congestive heart failure Acute Coronary artery disease Acute
[2018-04-07] MEDS: ISOSORBIDE MONONITRATE 30 MG TAB.SR PO SCH (12:13)
--- NOTE | 2018-04-07 13:50 | GCON ---
CARDIOLOGY CONSULT. DATE OF CONSULTATION: 04/07/2018 CHIEF COMPLAINT: Worsening shortness of breath and sharp chest pain x1 month with 12 pound weight ga in. HISTORY OF PRESENT ILLNESS: The patient is an 82-year-old woman with the following cardiac and medic al problems. She has had coronary artery disease status post an LAD stent in August 2016. She has a l eft bundle branch block with a pacemaker. Lastly, she has breast cancer with previous mastectomy, re portedly in remission. Her last heart catheterization in August 2016 demonstrated an 80% LAD lesion wh ich was stented open. She had 50% plaque in a diagonal branch and circumflex and mild plaque in her right coronary artery with an LVEF of 43%. An echo in August 2016 demonstrated normal LV function. e reports for the last month she has been not feeling well with worsening shortness of breath with dy spnea on exertion at 50 feet. She has also had some sharp left and central chest pain lasting second s, occurring at rest. She denies cough. She came to the emergency room last night for evaluation an d her initial blood pressure was 173/73 with an NT proBNP level of 1630. She was given Lasix and thi s morning feels better. She is having no further chest pain. She is still short of breath walking a round her room. She denies palpitations, PND, or syncope. PAST MEDICAL HISTORY: Coronary artery disease as per HPI, left bundle branch block, and breast cance r. PAST SURGICAL HISTORY: LAD PCI as per HPI, permanent pacemaker, and mastectomies. MEDICATIONS: Aspirin 81 mg per day, atorvastatin 40 mg per day, Coreg 50 mg b.i.d., Plavix 75 mg leeann ly, Lovenox 40 mg subcu q.a.m., Lasix 20 mg IV q.a.m., and Avapro 300 mg per day. ALLERGIES: Sulfa. SOCIAL HISTORY: The patient denies tobacco use or excessive alcohol intake. FAMILY HISTORY: Unremarkable for premature coronary artery disease. REVIEW OF SYSTEMS: The patient reports no recent fevers or chills. She has no GI bleed symptoms suc h as hematemesis, melena, or bright red blood per rectum. Rest of 10-point review of systems is nega tive. PHYSICAL EXAM: Weight 86.5 kg. Pulse 80, blood pressure 118/70, respirations 20, 2 L/minute 95%. G ENERAL: A mildly obese woman in no acute distress without chest pain or using excess respiratory mus cles. EYES: Pupils equal and reactive to light. ENT: Oral mucosa with no cyanosis. NECK: Jugula r venous pressure to 8 cm. Carotid pulses 2+ bilaterally with no obvious bruits. No thyromegaly not ed. LUNGS: Clear to auscultation bilaterally without rales, rhonchi, or wheezing. HEART: Normal P [place]. Regular rate and rhythm with 1/6 nonradiating systolic murmur and no S3 or S4 heard. ABDOMEN: Soft and nontender. No guarding or rebound. No splenomegaly. EXTREMITIES: 2+ peripheral pulses in cluding femoral and pedal pulses. No edema noted. MUSCULOSKELETAL: No scoliosis. NEURO: Normal a ffect and mood. SPINE: No nuchal rigidity. SKIN: No bleeding or cyanosis. LABORATORY DATA: White count 4.4, hematocrit 39, platelets 176,000, MCV 96. Sodium 140, potassium 3 .6, chloride 101, bicarb 31, BUN 22, creatinine 0.6, glucose 126. Troponin 0.016. NT proBNP level 1 630. IMPRESSION AND RECOMMENDATIONS: An 82-year-old woman with coronary artery disease status post LAD st ent in August 2016, with underlying left bundle branch block and permanent pacemaker and previous breas t cancer. Clinically, I think her blood pressure is not completely controlled and she is having some acute diastolic heart failure with moderate volume overload. Her chest pain is very atypical for an lloita and I do not think she is having recurrent unstable angina needing a catheterization currently. PLAN: 1. Would decrease her Coreg to 25 mg b.i.d. 2. Would add Imdur 30 mg per day. 3. Would increase Lasix to 40 mg IV b.i.d. for 2 or 3 more days. 4. Would start on KCl 20 mEq t.i.d. 5. Patient is scheduled for an echocardiogram today to re-evaluate left ventricular function. 6. As long as her troponins remain normal, I would do a Lexiscan Cardiolite stress test in the [facility]. 7. Probably could go home in 1-2 days as long as her stress test is unremarkable and her blood press ure controlled and she diureses well. Cardiology Service will continue to follow with you. Thank you for this consultation. /[id number]/MODL
[2018-04-07] MEDS: ACETAMINOPHEN 325 MG TAB PO PRN (14:56)
[2018-04-07] MEDS: FUROSEMIDE 40 MG/4 ML VIAL IVP SCH (14:57)
[2018-04-07] MEDS: POTASSIUM CL 20 MEQ TAB PO SCH ×2 (15:00→21:01)
--- NOTE | 2018-04-07 17:04 | ECHO ---
[email or web address] [address] [address] Main: [phone] Fax: Transthoracic Echocardiogram Name: GREGORY NUNES MR#: [id number] Study Date: 04/07/2018 Study Time: 11:21 AM Date of : 1935 Age: 82 year(s) Height: 157.5 cm (62 in.) Weight: 85.73 kg (189 lb.) BSA: 1.87 m2 Gender: Female Examination: Echo Indication: CHF exacerbation? Image Quality: Technically Difficult Contrast: Requested by: Jay Mendieta BP: 118 mmHg/70 mmHg Heart Rate: Rhythm: Indication: CHF exacerbation? Procedure Staff Supervisor [employer]: Johanna Ratliff RDCS Reading Physician: Clifford Esqueda MD Requesting Provider: Conclusions: Dilated left ventricle. Mild concentric LV hypertrophy. Severely reduced systolic LV function. EF is 17 %. Global hypokinesis with akinesis of the inferior wall. Grade II diastolic dysfunction. There is a ICD/Pacer wire noted in the right ventricle. There is a pacemaker lead noted in the right atrium. There is moderate thickening of the mitral valve leaflets. Mild mitral valve leaflet calcification is present. Mild mitral annular calcification. Moderate mitral valve regurgitation is present. Mild aortic valve regurgitation is present. Mild tricuspid regurgitation is present. Measurements: Chambers Valvular Assessment AV/MV Valvular Assessment TV/PV Normal Normal Normal Name Value Range Name Value Range Name Value Range Ao Ruba (MM): 2.6 cm (2.2 cm-3.7 AV Vmax: 1.24 m/s (1 m/s-1.7 TR Vmax: 2.43 mm/s ( - ) cm) m/s) TR PGmax: 24 mmHg ( - ) IVSd (2D): 1.0 cm (0.6 cm-1.1 AV maxP mmHg ( - ) syst. PAP: 29 mmHg ( - ) cm) LVOT Vmax: 0.86 m/s (0.7 m/s-1.1 LVDd (2D): 5.8 cm (3.9 cm-5.3 m/s) cm) MV E Vmax: 0.90 m/s ( - ) LVDs (2D): 4.6 cm (2.1 cm-4 MV A Vmax: 0.87 m/s ( - ) cm) MV E/A: 1.03 ( - ) LVPWd (2D): 1.1 cm ( - ) LVEF (BP): 17 % (>=55 %) RVDd(2D): 2.8 cm (1.9 cm-3.8 cmmm) Patient: GREGORY NUNES Study Date: 04/07/2018 Page 1 of 2 11:21 AM Continued Measurements: Chambers Valvular Assessment AV/MV Valvular Assessment TV/PV Name Value Name Value Name Value LADs: 3.5 cm MV DecTime: 232 m/s CVP (est.): 5 mmHg LADs Lon.7 cm MV E' Septal: 0.03 m/s LA Area: 22.6 cm2 MV E/E' Septal: 35.70 LA Volume: 68 ml MV E/E' Lateral: 17.10 LA Volume Index: 36.4 ml/m2 RA Area: 12.9 cm2 Additional Vessels Name Value Ao Ascendin.6 cm Findings: Left Ventricle: Dilated left ventricle. Mild concentric LV hypertrophy. Severely reduced systolic LV function. EF is 17 %. Global hypokinesis with akinesis of the inferior wall. Grade II diastolic dysfunction. Right Ventricle: Normal size right ventricle. Normal RV function. There is a ICD/Pacer wire noted in the right ventricle. Left Atrium: The left atrium is mildly dilated. Right Atrium: The right atrium is normal in size. There is a pacemaker lead noted in the right atrium. Mitral Valve: There is moderate thickening of the mitral valve leaflets. Mild mitral valve leaflet calcification is present. Mild mitral annular calcification. Moderate mitral valve regurgitation is present. No mitral stenosis is present. Aortic Valve: The aortic valve is tri-leaflet. Mild aortic cusp calcification is noted. Mild aortic valve regurgitation is present. No aortic valve stenosis is present. Tricuspid Valve: The tricuspid valve appears normal. Mild tricuspid regurgitation is present. Right ventricular systolic pressure measures 29mmHg. The pulmonary artery pressure is mildly increased. Pulmonic Valve: Pulmonary valve not well visualized. Aorta: Normal size aortic root measuring 2.6 cm. Normal size ascending aorta measuring 2.6 cm. IVC: Normal size and course of the IVC. Pericardium: No pericardial effusion. (No Signature Object) Patient: GREGORY NUNES Study Date: 04/07/2018 Page 2 of 2 11:21 AM [id number]
--- NOTE | 2018-04-07 19:56 | PDMN ---
Medical Necessity Medical necessity: MCG: S190 heart failure 82 yr old F with acute systolic CHF , new recurrence of severe cardiomyopathy, and L ventricular dysfunction now with inferior hypokinesis, pt status changed to INPT 04/07/18 for ongoing med nec. further eval and tx of severe cardiomyopathy > 2 MN., need for ongoing tx of BP, diuresis and further diagnostic assessments - todays echo down to 17% EF with inferior wall abnormalities, cards consult pend.
[2018-04-07] MEDS: QUEtiapine FUMARATE 100 MG TAB PO SCH (21:01)
[2018-04-07] MEDS: MELATONIN 3 MG TAB PO PRN (21:08)
--- NOTE | 2018-04-08 08:59 | SOAPPROG ---
SWATHI Progress Note Assessment/Plan: Assessment: 82 y/o woman with CAD s/p PCI of LAD in 09/10, LBBB s/p PPM, HTN, and remote breast cancer admitted with one month of sharp, atypical CP and MUÑOZ at 50ft and has gained 10lbs in last six months. Echo shows development of new severe systolic dysfunction with LVEF 17%. I wonder if the decline in LVEF is related to uncontrolled BP and/or post viral exposure. PLAN: 1)stop Avapro 2)start ARNI agent Entresto 24/26mg PO BID 3)start Aldactone 25mg PO qam. 4)lexiscan cardiolite today to evaluate for occult ischemia. 5)AM labs (04/09): BMP and NT-pro BNP 6)maybe home Monday or Monday with close follow up in [facility] as doesn't need a cath. 04/08/18 08:55 Subjective: feels a little better with now MUÑOZ at 75ft. Still tired. Denies CP, palpitations , near syncope or PND or cough. Objective: Vital Signs Temp Pulse Resp BP Pulse Ox 36.8 C 80 18 131/88 H 97 04/08/18 08:00 04/08/18 08:00 04/08/18 08:00 04/08/18 08:00 04/08/18 08:00 Laboratory Results 04/08/18 03:30 04/07/18 04/08/18 04/09/18 05:59 05:59 05:59 Intake Total 250 Balance 250 Physical Exam - Physical Exam General Appearance: alert, obese EENT: PERRL/EOMI Respiratory: lungs clear Cardiac/Chest: regular rate, rhythm, gallop (jvp to 8-9cm.), systolic murmur, No JVD Peripheral Pulses: 2+: carotid (R), carotid (L), femoral (R), femoral (L), dorsalis-pedis (R), dorsalis-pedis (L) Abdomen: non-tender, No guarding, No ascites Skin: warm/dry Extremities: No pedal edema Neuro/Psych: oriented x 3 ICD10 Worksheet Patient Problems: Problems Problem Status Onset Chest pain Acute New onset of congestive heart failure Acute Coronary artery disease Acute
[2018-04-08] MEDS ORDERED: REGADENOSON 0.4 MG/5 ML SYR IVP ONE (09:00)
--- NOTE | 2018-04-08 10:12 | CPR ---
DATE OF PROCEDURE: 04/08/2018 PROCEDURE PERFORMED: Lexiscan Cardiac stress test. INDICATIONS: Shortness of breath, chest pain, and new LV dysfunction in woman with previous LAD sten t. CONSENT: Signed. Risks, benefits, and alternatives discussed with patient. She wishes to proceed. TECHNICAL DIFFICULTIES: None. DESCRIPTION OF PROCEDURE: The patient had a baseline EKG showing a paced rhythm. Her heart rate was 92 with initial blood pressure of 154/90. 0.4 mg of Lexiscan was administered over a standard 2 min elio protocol. After this, 30 millicuries of technetium-99m were injected. Her heart rate went to a peak of 101 beats per minute in a continued paced rhythm and her blood pressure initially dropped to 134/84 and then went back to its baseline. She had a headache and chronic chest pain throughout the test. No arrhythmias were noted. Cardiolite images are pending. COMPLICATIONS: None. FINAL IMPRESSIONS: 1. Indeterminate EKG portion of Lexiscan Cardiolite stress test, secondary to underlying paced rhyth m and inability to reach target heart rate. 2. Cardiolite images pending. /[id number]/MODL
[2018-04-08] MEDS: ISOSORBIDE MONONITRATE 30 MG TAB.SR PO SCH (10:31)
[2018-04-08] MEDS: ATORVASTATIN CALCIUM 40 MG TAB PO SCH (10:31)
[2018-04-08] MEDS: FUROSEMIDE 40 MG/4 ML VIAL IVP SCH ×2 (10:31→16:03)
[2018-04-08] MEDS: CLOPIDOGREL BISULFATE 75 MG TAB PO SCH (10:31)
[2018-04-08] MEDS: POTASSIUM CL 20 MEQ TAB PO SCH ×3 (10:31→21:56)
[2018-04-08] MEDS: CARVEDILOL 25 MG TAB PO SCH ×2 (10:32→17:20)
[2018-04-08] MEDS: VENLAFAXINE HCL 75 MG TAB PO SCH ×2 (10:33→21:55)
[2018-04-08] MEDS: SPIRONOLACTONE 25 MG TAB PO SCH (10:34)
[2018-04-08] MEDS: ASPIRIN 81 MG CHEWABLE TAB PO SCH (10:34)
[2018-04-08] MEDS: CALCIUM CARB W/VIT D 500 MG TAB PO SCH ×2 (10:36→21:59)
[2018-04-08] MEDS: SACUBITRIL/VALSARTAN 24/26MG 1 EA TAB PO SCH ×2 (10:36→22:00)
[2018-04-08] MEDS: ENOXAPARIN 40 MG/0.4 ML SYR SC SCH (10:37)
[2018-04-08] MEDS: ACETAMINOPHEN 325 MG TAB PO PRN ×2 (10:40→17:19)
--- NOTE | 2018-04-08 20:17 | HOSPPROG ---
Hospitalist Progress Note Assessment/Plan: DIAGNOSES: * Acute systolic congestive heart failure with new recurrence of severe cardiomyopathy and left ventricular dysfunction, now with inferior hypokinesis -discharge antral diagnosis includes hypertensive disease, ischemic disease, viral illness, and a variety of other possible causes * Atypical chest pain recent onset, known hx of CAD and a stent * abnormal perfusion images on stress portion of lexiscan, rest images for 04/09 * Uncontrolled hypertension in the outpatient setting at this time is improved today with medication -notably the patient denies use of decongestants, illicit drugs, alcohol * History of breast cancer I reviewed the patient's case in detail this morning with Dr. oSnu Pastor Patient seen by me today on hospitals rounds as well as multidisciplinary rounds PLANS: * Continue diuresis * Blood pressure management will continue current medicines and follow very closely, clearly needs excellent blood pressure control at all times * rest images for lexiscan in am, review w cardiology * Will check TSH and iron levels to be sure these are in good range * recheck lytes in am I have discussed the lexiscan stress results in detail with the patient and family at bedside and reviewed differential diagnosis and diagnostic workup. We have reviewed the need for aggressive blood pressure management at all times. SUBJECTIVE: Patient feeling better with diuresis so far Denies angina type symptoms today OBJECTIVE Vitals reviewed: Blood pressures improved, other vitals stable without fever Adon, my review: Sinus Diuresis modest so far by I&O but > 1.5 L Exam: alert oriented skin warm dry color ok resps not labored lungs clear but diminished BSs heart regular abd soft nondistended nontender, bowel sounds present limbs warm, still with some mild edema iv site ok Lab data: Metabolic panel, CBC, and troponins all unremarkable Echocardiography: echo study compared with the most recent hospital based study done in August of 2016. She had ejection fraction 18 months ago of greater than 50% with no wall motion abnormalities. Today's echo showed ejection fraction of 17% with inferior wall motion abnormalities. Notably the patient tells me that she had ejection fraction of approximately 15% some years ago when she 1st developed heart disease. She says [facility] but no cause of her congestive heart failure was found that she is aware of. She was treated with angiotensin medicines beta- tereza since then and has done well until this episode. Objective: Vital Signs Temp Pulse Resp BP Pulse Ox 36.6 C 96 20 109/56 L 95 04/08/18 16:00 04/08/18 17:20 04/08/18 16:00 04/08/18 17:20 04/08/18 16:00 Laboratory Results 04/08/18 03:30 04/07/18 04/08/18 04/09/18 06:59 06:59 06:59 Intake Total 250 550 Output Total 1300 Balance 250 -750 - Time Spent With Patient Time Spent with Patient: greater than 35 minutes Time Spent with Patient: Greater than 35 minutes spent on this patients care, greater than 50% of time spent counseling, educating, and coordinating care regarding the above mentioned plan. ICD10 Worksheet Patient Problems: Problems Problem Status Onset Chest pain Acute New onset of congestive heart failure Acute Coronary artery disease Acute
[2018-04-08] MEDS: QUEtiapine FUMARATE 100 MG TAB PO SCH (21:56)
[2018-04-09] MEDS: VENLAFAXINE HCL 75 MG TAB PO SCH ×2 (09:50→20:03)
[2018-04-09] MEDS: SACUBITRIL/VALSARTAN 24/26MG 1 EA TAB PO SCH ×2 (09:50→20:03)
[2018-04-09] MEDS: CALCIUM CARB W/VIT D 500 MG TAB PO SCH ×2 (09:50→20:03)
[2018-04-09] MEDS: CARVEDILOL 25 MG TAB PO SCH ×2 (09:50→19:14)
[2018-04-09] MEDS: ATORVASTATIN CALCIUM 40 MG TAB PO SCH (09:50)
[2018-04-09] MEDS: POTASSIUM CL 20 MEQ TAB PO SCH (09:50)
[2018-04-09] MEDS: ISOSORBIDE MONONITRATE 30 MG TAB.SR PO SCH (09:50)
[2018-04-09] MEDS: SPIRONOLACTONE 25 MG TAB PO SCH (09:51)
[2018-04-09] MEDS: ASPIRIN 81 MG CHEWABLE TAB PO SCH (09:51)
[2018-04-09] MEDS: CLOPIDOGREL BISULFATE 75 MG TAB PO SCH (09:51)
[2018-04-09] MEDS: FUROSEMIDE 40 MG/4 ML VIAL IVP SCH ×2 (09:51→15:29)
--- NOTE | 2018-04-09 15:18 | SOAPPROG ---
SOAP Progress Note Assessment/Plan: Assessment: 82 y/o woman with CAD s/p PCI of LAD in 09/10, LBBB s/p PPM, HTN, and remote breast cancer admitted with one month of sharp, atypical CP and MUÑOZ at 50ft and has gained 10lbs in last six months. Echo shows development of new severe systolic dysfunction with LVEF 17%. I wonder if the decline in LVEF is related to uncontrolled BP and/or post viral exposure. Her cardiolite shows no significant reversible ischemia and I do not think she needs a cardiac cath currently. I think she is on a good CHF medicine regime now and she is euvolemic. PLAN: 1)allow to eat cardiac diet as no cardiac cath planned 2)stop IV lasix 3)start Lasix 40mg PO qam tomorrow. 4)decrease KCL to 20meq PO qam. 5)case management consult to evaluate transfer to SNF or Rehab facility for tomorrow as still very weak and tired and unstable with gait. 6)Transitional CHF program with f/u [facility] one week after discharge. 04/09/18 15:15 Subjective: no more CP. MUÑOZ is improving but still MUÑOZ at 100-150ft. She is tired and weak. No syncope or PND. Objective: Vital Signs Temp Pulse Resp BP Pulse Ox 36.8 C 95 18 87/59 L 95 04/09/18 12:00 04/09/18 14:26 04/09/18 14:26 04/09/18 14:26 04/09/18 14:26 Laboratory Results 04/09/18 03:52 04/08/18 04/09/18 04/10/18 05:59 05:59 05:59 Intake Total 250 1050 Output Total 1600 Balance 250 -550 Physical Exam - Physical Exam General Appearance: alert, obese EENT: PERRL/EOMI Neck: non-tender Respiratory: lungs clear Cardiac/Chest: regular rate, rhythm, systolic murmur, No gallop, No JVD Peripheral Pulses: 2+: carotid (R), carotid (L), femoral (R), femoral (L), dorsalis-pedis (R), dorsalis-pedis (L) Abdomen: non-tender, No guarding, No ascites Skin: warm/dry Extremities: pedal edema Neuro/Psych: oriented x 3 ICD10 Worksheet Patient Problems: Problems Problem Status Onset Chest pain Acute New onset of congestive heart failure Acute Coronary artery disease Acute
[2018-04-09] MEDS: ENOXAPARIN 40 MG/0.4 ML SYR SC SCH (15:43)
--- NOTE | 2018-04-09 17:36 | HOSPPROG ---
Hospitalist Progress Note Assessment/Plan: Acute systolic congestive heart failure- patient was being given IV Lasix. Blood pressures dropped today. Case discussed with Dr. Pastor who recommended stopping IV Lasix transitioning to oral dose. He will see them an outpatient heart failure clinic. Patient had a stress test today I reviewed the results which showed global hypokinesia with a left ventricular ejection fraction of 17 % which is new for her. No indication for acute heart catheterization per Cardiology has Cardiolite showed no significant reversible ischemia. Start Lasix 40 mg p.o. Q.a.m. In the morning Monitor potassium Follow-up with Dr. Pastor in CHF Clinic 1 week after discharge CAD status post PCI in August of 2016 with permanent pacemaker- on Coreg, ARB, nitrate, diuretic and Plavix. Also on statin and baby aspirin Hypertension- on Coreg, Imdur, valsartan, Aldactone, Lasix. Monitor for hypotension Depression- on Seroquel and Effexor Prophylaxis- Lovenox Fluids- none Electrolytes- within normal limits Nutrition- cardiac diet Cor-full code Dispo- inpatient for acute congestive heart failure and chest pain workup likely DC in a.m. Subjective: No longer with chest pain, shortness of breath minimal. Hungry. Objective: Vital Signs Temp Pulse Resp BP Pulse Ox 36.4 C 103 H 20 117/59 L 95 04/09/18 16:00 04/09/18 16:00 04/09/18 16:00 04/09/18 16:00 04/09/18 16:00 Laboratory Results 04/09/18 03:52 04/08/18 04/09/18 04/10/18 05:59 05:59 05:59 Intake Total 250 1050 240 Output Total 1600 600 Balance 250 -550 -360 - Physical Exam Constitutional: no apparent distress, appears nourished, not in pain Eyes: PERRL, anicteric sclera, EOMI Ears, Nose, Mouth, Throat: moist mucous membranes, hearing normal, ears appear normal, no oral mucosal ulcers Cardiovascular: regular rate and rhythym, no murmur, rub, or gallop Respiratory: no respiratory distress, no rales or rhonchi, clear to auscultation Gastrointestinal: normoactive bowel sounds, soft, non-tender abdomen, no palpable masses Genitourinary: no bladder fullness, no bladder tenderness, no renal bruits Skin: no rashes or abrasions, no fluctuance, no induration Musculoskeletal: full muscle strength, no muscle tenderness, normal joint ROM Neurologic: AAOx3, sensation intact bilaterally Psychiatric: interacting appropriately, not anxious, not encephalopathic, thought process linear Lymph, Heme, Immunologic: no cervical LAD, no supraclavicular LAD ICD10 Worksheet Patient Problems: Problems Problem Status Onset Chest pain Acute New onset of congestive heart failure Acute Coronary artery disease Acute
[2018-04-09] MEDS: ACETAMINOPHEN 325 MG TAB PO PRN (19:15)
[2018-04-09] MEDS: QUEtiapine FUMARATE 100 MG TAB PO SCH (20:04)
[2018-04-09] MEDS: MELATONIN 3 MG TAB PO PRN (20:11)
[2018-04-10] MEDS: CARVEDILOL 25 MG TAB PO SCH ×2 (09:10→15:54)
[2018-04-10] MEDS: VENLAFAXINE HCL 75 MG TAB PO SCH ×2 (09:10→20:22)
[2018-04-10] MEDS: FUROSEMIDE 40 MG TAB PO SCH (09:10)
[2018-04-10] MEDS: CLOPIDOGREL BISULFATE 75 MG TAB PO SCH (09:10)
[2018-04-10] MEDS: ENOXAPARIN 40 MG/0.4 ML SYR SC SCH (09:11)
[2018-04-10] MEDS: CALCIUM CARB W/VIT D 500 MG TAB PO SCH ×2 (09:11→20:20)
[2018-04-10] MEDS: ISOSORBIDE MONONITRATE 30 MG TAB.SR PO SCH (09:11)
[2018-04-10] MEDS: ASPIRIN 81 MG CHEWABLE TAB PO SCH (09:11)
[2018-04-10] MEDS: POTASSIUM CL 20 MEQ TAB PO SCH (09:11)
[2018-04-10] MEDS: SACUBITRIL/VALSARTAN 24/26MG 1 EA TAB PO SCH ×2 (09:11→20:20)
[2018-04-10] MEDS: ATORVASTATIN CALCIUM 40 MG TAB PO SCH (09:11)
[2018-04-10] MEDS: SPIRONOLACTONE 25 MG TAB PO SCH (09:11)
--- NOTE | 2018-04-10 13:24 | HOSPPROG ---
Hospitalist Progress Note Assessment/Plan: 82 year old female admitted with CHF exacerbation. diuresed with good response. changed to PO lasix and ready for discharge today but patient adamant about staying. says she is too tired. Acute systolic congestive heart failure- patient was being given IV Lasix. Blood pressures dropped today. Case discussed with Dr. Pastor who recommended stopping IV Lasix transitioning to oral dose. He will see them an outpatient heart failure clinic. Patient had a stress test today I reviewed the results which showed global hypokinesia with a left ventricular ejection fraction of 17 % which is new for her. No indication for acute heart catheterization per Cardiology has Cardiolite showed no significant reversible ischemia. Start Lasix 40 mg p.o. Q.a.m. In the morning Monitor potassium Follow-up with Dr. Pastor in CHF Clinic 1 week after discharge CAD status post PCI in August of 2016 with permanent pacemaker- on Coreg, ARB, nitrate, diuretic and Plavix. Also on statin and baby aspirin Hypertension- on Coreg, Imdur, valsartan, Aldactone, Lasix. Monitor for hypotension Depression- on Seroquel and Effexor Prophylaxis- Lovenox Fluids- none Electrolytes- within normal limits Nutrition- cardiac diet Cor-full code Dispo- inpatient for acute congestive heart failure dc in am. Subjective: patient very tired. no chest pain. Arms feel heavy. just overall fatigue. Objective: Vital Signs Temp Pulse Resp BP Pulse Ox 36.7 C 100 18 90/43 L 94 04/10/18 12:00 04/10/18 12:00 04/10/18 12:00 04/10/18 12:00 04/10/18 12:00 Laboratory Results 04/10/18 10:56 04/09/18 04/10/18 04/11/18 05:59 05:59 05:59 Intake Total 1050 590 Output Total 1600 700 Balance -550 -110 - Physical Exam Constitutional: no apparent distress, appears nourished, not in pain Eyes: PERRL, anicteric sclera, EOMI Ears, Nose, Mouth, Throat: moist mucous membranes, hearing normal, ears appear normal, no oral mucosal ulcers Cardiovascular: regular rate and rhythym, no murmur, rub, or gallop Respiratory: no respiratory distress, no rales or rhonchi, clear to auscultation Gastrointestinal: normoactive bowel sounds, soft, non-tender abdomen, no palpable masses Genitourinary: no bladder fullness, no bladder tenderness, no renal bruits Skin: no rashes or abrasions, no fluctuance, no induration Musculoskeletal: full muscle strength, no muscle tenderness, normal joint ROM Neurologic: AAOx3, sensation intact bilaterally Psychiatric: interacting appropriately, not anxious, not encephalopathic, thought process linear Lymph, Heme, Immunologic: no cervical LAD, no supraclavicular LAD ICD10 Worksheet Patient Problems: Problems Problem Status Onset Chest pain Acute New onset of congestive heart failure Acute Coronary artery disease Acute
--- NOTE | 2018-04-10 16:49 | ASMTCMCOM ---
CM Note CM Note Notes: 04/10/2018 Case Management Note PT recommending home care. Met w/pt to discuss. Pt agreeable to referrals. Faxed referrals to multiple agencies d/t pt insurance. Anticipating d/c tomorrow. Case Management d/c poc: [facility] pending acceptance Case Management to follow. Date Signed: 04/10/2018 04:48 PM Electronically Signed By:Clare Dooley RN
--- NOTE | 2018-04-10 19:33 | PDCARPN ---
Cardiology Progress Note Chief Complaint: CHF Assessment/Plan: Assessment: 82 y/o woman with CAD s/p PCI of LAD in 09/10, LBBB s/p PPM, HTN, and remote breast cancer admitted with one month of sharp, atypical CP and MUÑOZ at 50ft and has gained 10lbs in last six months. Echo shows development of new severe systolic dysfunction with LVEF 17%. I wonder if the decline in LVEF is related to uncontrolled BP and/or post viral exposure. Her cardiolite shows no significant reversible ischemia and I do not think she needs a cardiac cath currently. I think she is on a good CHF medicine regime now and she is euvolemic. PLAN: Continue Lasix 40mg PO qam KCL to 20meq PO qam. case management to evaluate for transfer to SNF or Rehab facility as still very weak and tired and unstable with gait. Transitional CHF program with f/u [facility] one week after discharge. Reviewed/Discussed With: multidisciplinary team Time Spent with Patient: greater than 25 minutes Time Spent with Patient: Greater than 25 minutes spent on this patients care, greater than 50% of time spent counseling, educating, and coordinating care regarding the above mentioned plan. Objective: Vital Signs (8 Hrs) Temp Pulse Resp BP Pulse Ox 04/10/18 17:46 127/72 H 04/10/18 14:27 36.6 C 94 19 85/67 L 97 04/10/18 12:50 3 L 04/10/18 12:00 36.7 C 100 18 90/43 L 94 Intake/Output (24 Hrs) 04/09/18 04/10/18 04/11/18 05:59 05:59 05:59 Intake Total 1050 590 200 Output Total 1600 700 Balance -550 -110 200 Intake: Oral (ml) 1050 590 200 IV Intake (ml) 0 Output: Urine (ml) 1600 700 Toilet 1600 700 Other: Weight 85.3 kg 84.5 kg Number of Voids Toilet 1 Result Diagrams: 04/07/18 08:19 04/10/18 10:56 - Physical Exam Constitutional: no apparent distress Cardiovascular: regular rate and rhythm, no rubs, no gallops Respiratory: no crackles, no wheezes, reduced air movement Skin: warm Neurologic: AAOx3 Psychiatric: cooperative, interactive ICD10 Worksheet Patient Problems: Problems Problem Status Onset New onset of congestive heart failure Acute Chest pain Acute Coronary artery disease Acute
[2018-04-10] MEDS: QUEtiapine FUMARATE 100 MG TAB PO SCH (20:20)
[2018-04-10] MEDS: MELATONIN 3 MG TAB PO PRN (20:20)
--- NOTE | 2018-04-11 11:00 | SOAPPROG ---
SOAP Progress Note Assessment/Plan: Assessment: 82 y/o woman with CAD s/p PCI of LAD in 09/10, LBBB s/p PPM, HTN, and remote breast cancer admitted with one month of sharp, atypical CP and MUÑOZ at 50ft and has gained 10lbs in last six months. Echo shows development of new severe systolic dysfunction with LVEF 17%. I wonder if the decline in LVEF is related to uncontrolled BP and/or post viral exposure. Her cardiolite shows no significant reversible ischemia and I do not think she needs a cardiac cath currently. I think she is on a good CHF medicine regime now and she is euvolemic. PLAN: 1)a rare low SBP < 80 with lightheadedness. Will decrease Lasix to 20mg PO qam and stop KCL all together. 2)rest of meds without changes. 3)okay to transfer to home or SNF today from cardiology standpoint 4)my office will arrange labs in five days (BMP) and f/u [facility] in one week. 04/11/18 10:57 Subjective: feels much better than a week ago. Still tired and weak. Denies CP, near syncope , palpitations, or PND. Objective: Vital Signs Temp Pulse Resp BP Pulse Ox 36.7 C 92 10 L 120/66 96 04/11/18 07:33 04/11/18 07:33 04/11/18 07:33 04/11/18 07:33 04/11/18 07:33 Laboratory Results 04/10/18 10:56 04/10/18 04/11/18 04/12/18 05:59 05:59 05:59 Intake Total 590 200 Output Total 700 400 Balance -110 -200 Physical Exam - Physical Exam General Appearance: alert EENT: normal ENT inspection Neck: non-tender Respiratory: lungs clear Cardiac/Chest: regular rate, rhythm, systolic murmur (1/6 VINH heard), No gallop , No JVD Peripheral Pulses: 2+: carotid (R), carotid (L), femoral (R), femoral (L), dorsalis-pedis (R), dorsalis-pedis (L) Abdomen: non-tender, No guarding, No hepatomegaly, No splenomegaly, No ascites Skin: warm/dry Extremities: No pedal edema Neuro/Psych: oriented x 3 ICD10 Worksheet Patient Problems: Problems Problem Status Onset Chest pain Acute New onset of congestive heart failure Acute Coronary artery disease Acute
[2018-04-11] MEDS: ATORVASTATIN CALCIUM 40 MG TAB PO SCH (11:06)
[2018-04-11] MEDS: CALCIUM CARB W/VIT D 500 MG TAB PO SCH ×2 (11:07→20:47)
[2018-04-11] MEDS: CARVEDILOL 25 MG TAB PO SCH (11:07)
[2018-04-11] MEDS: SACUBITRIL/VALSARTAN 24/26MG 1 EA TAB PO SCH ×2 (11:07→20:46)
[2018-04-11] MEDS: VENLAFAXINE HCL 75 MG TAB PO SCH ×2 (11:07→20:46)
[2018-04-11] MEDS: SPIRONOLACTONE 25 MG TAB PO SCH (11:07)
[2018-04-11] MEDS: ISOSORBIDE MONONITRATE 30 MG TAB.SR PO SCH (11:07)
[2018-04-11] MEDS: ENOXAPARIN 40 MG/0.4 ML SYR SC SCH (11:08)
[2018-04-11] MEDS: ASPIRIN 81 MG CHEWABLE TAB PO SCH (11:08)
[2018-04-11] MEDS: CLOPIDOGREL BISULFATE 75 MG TAB PO SCH (11:08)
[2018-04-11] MEDS: POTASSIUM CL 20 MEQ TAB PO SCH (11:09)
[2018-04-11] MEDS: FUROSEMIDE 40 MG TAB PO SCH (11:20)
--- NOTE | 2018-04-11 14:45 | ASMTCMCOM ---
CM Note CM Note Notes: Pts case discussed in tx rounds and w/ Dr. Pastor. CM met w/ pt for dispo planning. Pt is agreeable to going to SNF. CM provided pt w/ senior blue book. Pt would like referrals made to all the SNFs in [place]. [facility] is able to accept. Ophelia from [facility] stopped by and met w/ pt. [employer] will start getting auth. CM to follow. Plan: [facility] Date Signed: 04/11/2018 02:44 PM Electronically Signed By:LINCOLN Gandara
[2018-04-11] MEDS ORDERED: NS 250 ML IV ONE (15:45)
--- NOTE | 2018-04-11 16:54 | HOSPPROG ---
Hospitalist Progress Note Assessment/Plan: 82 year old female admitted with CHF exacerbation. diuresed with good response. Acute systolic congestive heart failure -stress test today I reviewed the results which showed global hypokinesia with a left ventricular ejection fraction of 17% which is new for her. -No indication for acute heart catheterization per Cardiology has Cardiolite showed no significant reversible ischemia. -did not tolerate additional Lasix today -cont BB -Has not tolerated FRANCINE-I -cont Spironolactone Hypotension -persistent low, likely due to diuresis. She has received 250ml Bolus. If recurrence of hypotension, consider additional 250 -For now cont with Coreg 25mg BID, but may need to cut further -cont Spironolactone -May need additional diuretics if clinically indicated and if can tolerate, for now no changes CAD status post PCI in August of 2016 with permanent pacemaker- on Coreg, ARB, nitrate, diuretic and Plavix. Also on statin and baby aspirin Hypertension- -Now with hypotension, will monitor Depression- on Seroquel and Effexor Prophylaxis- Lovenox Fluids- none Electrolytes- within normal limits Nutrition- cardiac diet Cor-full code Dispo- not clinically ready for discharge. Subjective: dizzy with activity, noted to have low BP Objective: Vital Signs Temp Pulse Resp BP Pulse Ox 36.6 C 101 H 21 H 107/56 L 91 L 04/11/18 14:58 04/11/18 16:11 04/11/18 14:58 04/11/18 16:11 04/11/18 14:58 Laboratory Results 04/10/18 10:56 04/10/18 04/11/18 04/12/18 05:59 05:59 05:59 Intake Total 590 200 550 Output Total 700 400 Balance -110 -200 550 - Physical Exam Constitutional: no apparent distress Eyes: PERRL, EOMI Ears, Nose, Mouth, Throat: hearing normal, dry mucous membranes Cardiovascular: regular rate and rhythym, No edema Respiratory: no respiratory distress, no rales or rhonchi, clear to auscultation Gastrointestinal: normoactive bowel sounds, soft, non-tender abdomen Skin: warm Neurologic: AAOx3 Psychiatric: interacting appropriately, not anxious, not encephalopathic Lymph, Heme, Immunologic: No petechiae ICD10 Worksheet Patient Problems: Problems Problem Status Onset Chest pain Acute New onset of congestive heart failure Acute Coronary artery disease Acute
[2018-04-11] MEDS ORDERED: CARVEDILOL 6.25 MG TAB PO ONE (18:00)
[2018-04-11] MEDS: QUEtiapine FUMARATE 100 MG TAB PO SCH (20:45)
[2018-04-12] MEDS ORDERED: CARVEDILOL 25 MG TAB PO SCH (08:00)
[2018-04-12] MEDS ORDERED: FUROSEMIDE 20 MG TAB PO SCH (09:00)
[2018-04-12] MEDS: SPIRONOLACTONE 25 MG TAB PO SCH (10:03)
[2018-04-12] MEDS: VENLAFAXINE HCL 75 MG TAB PO SCH (10:03)
[2018-04-12] MEDS: ASPIRIN 81 MG CHEWABLE TAB PO SCH (10:04)
[2018-04-12] MEDS: CALCIUM CARB W/VIT D 500 MG TAB PO SCH (10:04)
[2018-04-12] MEDS: ATORVASTATIN CALCIUM 40 MG TAB PO SCH (10:04)
[2018-04-12] MEDS: SACUBITRIL/VALSARTAN 24/26MG 1 EA TAB PO SCH (10:04)
[2018-04-12] MEDS: CLOPIDOGREL BISULFATE 75 MG TAB PO SCH (10:04)
[2018-04-12] MEDS: ENOXAPARIN 40 MG/0.4 ML SYR SC SCH (10:06)
--- NOTE | 2018-04-12 11:50 | SOAPPROG ---
SOAP Progress Note Assessment/Plan: Assessment: 82 y/o woman with CAD s/p PCI of LAD in 09/10, LBBB s/p PPM, HTN, and remote breast cancer admitted with one month of sharp, atypical CP and MUÑOZ at 50ft and has gained 10lbs in last six months. Echo shows development of new severe systolic dysfunction with LVEF 17%. I wonder if the decline in LVEF is related to uncontrolled BP and/or post viral exposure. Her cardiolite shows no significant reversible ischemia and I do not think she needs a cardiac cath currently. I think she is on a good CHF medicine regime now and she is euvolemic. PLAN: 1)decrease Aldactone now and upon transfer to SNF to 12.5mg PO qam with slightly high K+. 2)continue Entresto/Coreg/ASA/Plavix and Lipitor 3)no lasix or Imdur as symptomatic hypotension and appears euvolemic off PO Diuretics. 4)okay to transfer to SNF from cardiac standpoint when bed available and approved. 5)labs in five days at SNF (BMP). 6)f/u CHF-[place] 5-7 days after transferred to SNF. 04/12/18 11:47 Subjective: feels weak and tired. No more CP, dizziness or PND. Objective: Vital Signs Temp Pulse Resp BP Pulse Ox 36.7 C 90 12 124/71 H 98 04/12/18 07:07 04/12/18 10:04 04/12/18 07:07 04/12/18 10:04 04/12/18 07:07 Laboratory Results 04/12/18 05:00 04/11/18 04/12/18 04/13/18 05:59 05:59 05:59 Intake Total 200 1050 Output Total 400 350 Balance -200 700 Physical Exam - Physical Exam General Appearance: alert EENT: PERRL/EOMI Neck: non-tender Respiratory: lungs clear Cardiac/Chest: regular rate, rhythm, systolic murmur, No gallop, No JVD Peripheral Pulses: 2+: carotid (R), carotid (L), femoral (R), femoral (L), dorsalis-pedis (R), dorsalis-pedis (L) Abdomen: non-tender, No guarding, No rebound, No ascites Skin: warm/dry Extremities: No pedal edema Neuro/Psych: alert ICD10 Worksheet Patient Problems: Problems Problem Status Onset Chest pain Acute New onset of congestive heart failure Acute Coronary artery disease Acute
--- NOTE | 2018-04-12 13:19 | PDIAF ---
- Diagnosis Diagnosis: CHF Code Status: Full Code - Medication Management Discharge Medications: electronically signed and located in the Home Medication List. - Orders Diet Recommendation: cardiac -low fat low salt Diet Texture: Regular Texture Diet Additional Instructions: bmp in 5 days FOLLOW UP WITH CARDIOLOGY(DR. KUMAR) IN 5-7 DAYS - Labs/Radiology BMP Date: 04/17/18 - Follow Up Care Current Providers and Referrals: Sonu Kumar MD [Medical Doctor] - follow up in 1 week NONE *PRIMARY CARE P,. [Unknown] - As per Instructions
--- NOTE | 2018-04-12 13:25 | PDDCSUM ---
Discharge Summary Discharge Summary: 82 year old female admitted with CHF exacerbation. diuresed with good response. Had mild hypotension yesterday and Lasix held. At this time she is being d/c w/ o Lasix. She is on Spironolactone. Volume and resp status will need to be monitored closely to determine need for additional diuretics She will f/u with Dr. Kumar in one week. A BMP is being rechecked in 5 days. K will need be followed closely DDX: Acute systolic congestive heart failure -stress test showed global hypokinesia with a left ventricular ejection fraction of 17% which is new for her. -No indication for acute heart catheterization per Cardiology as Cardiolite showed no significant reversible ischemia. Hypotension -will need to monitor closely CAD status post PCI in August of 2016 with permanent pacemaker- on Coreg, ARB, nitrate, diuretic and Plavix. Also on statin and baby aspirin Depression- on Seroquel and Effexor Weakness and deconditioning Exam: NAD AAOX3 RRR CTA B S/NT/ND MEDS: SEE MED REC F/U: WITH DR. KUMAR IN ONE WEEK TOTAL TIME SPENT ON D/C IS 35 MINS
--- NOTE | 2018-04-12 13:32 | ASMTLACE ---
LACE Length of stay for Answers: 4-6 days current admission Acuity / Level of Answers: Yes Care: Did the patient have an inpatient admission? Comorbidities - select Answers: Any tumor (including all that apply lymphoma or leukemia) Coronary Artery Disease # of Emergency department Answers: 1-2 visits in the last 6 months Score: 12 Date Signed: 04/12/2018 01:31 PM Electronically Signed By:LINCOLN Gandara
--- NOTE | 2018-04-12 13:33 | ASMTDCNOTE ---
Case Management Discharge Discharge Order Complete? Answers: Yes Patient to Obtain Answers: Other Notes: [facility] Medications Transportation Arranged Answers: Other Notes: [place]add[place] w/c transport Transport will Pick (Date 04/12/2018 03:00 PM & Time) EMTALA Complete Answers: No Case Management Transport Answers: No Form Complete Faxed Final Orders Answers: Yes Agency/Facility Transfer Answers: Yes Report Printed & Faxed to Receiving Agency Family Notified Answers: No Discharge Comments Notes: Pts case discussed in tx rounds. Pt is being d/c'd today. [facility] was able to get auth. DC orders sent. CODY Dumont will call to give report. CM available for changes. Plan: [facility] Date Signed: 04/12/2018 01:33 PM Electronically Signed By:LINCOLN Gandara
--- NOTE | 2018-04-12 13:39 | ASDISCHSUM ---
Discharge Information Plan Status:SNF Medically Cleared to Leave:04/11/2018 Discharge Date:04/11/2018 CM D/C Disposition: ADT D/C Disposition:Detention Facility Projected Discharge Date:04/12/2018 11:00 AM Transportation at D/C: Discharge Delay Reason: Follow-Up Date:04/12/2018 11:00 AM Discharge Slot: Final Diagnosis: Placement Information Referral Type:*Home Health Care Services Referral ID:[id number] Provider Name:[facility] Address 1:[address] [address] Address 2: City:[place] Selection Factors: State:[place] Referral Type:*Correction/SNF Referral ID:[id number] Provider Name:Milly payne [place] Address 1:[address] [facility] Address 2: City:[place] Selection Factors: State:[place] Patient Contact Information Contact Name:SHUN Relationship:Daughter Address:[address] City:[place] Alternate Phone: [facility]/Zip Code:[place] [address] Email: Financial Information Financial Class:Medicare Advantage Plans Primary Plan Desc:[place] Primary Plan Number:[id number] Secondary Plan Desc: Secondary Plan Number: Assessment Information LACE LACE Length of stay for Answers: 4-6 days current admission Acuity / Level of Answers: Yes Care: Did the patient have an inpatient admission? Comorbidities - select Answers: Any tumor (including all that apply lymphoma or leukemia) Coronary Artery Disease # of Emergency department Answers: 1-2 visits in the last 6 months Score: 12 Date Signed: 04/12/2018 01:31 PM Electronically Signed By:LINCOLN Gandara [facility] CM Progress Note CM Note CM Note Notes: Patient admitted w MUÑOZ, atypical CP, and weight gain and found to have new onset CHF. She is receiving IV Lasix and will have echo today and Lexiscan tomorrow. She is normally independent and lives alone. Has a local son and daughter. PT has cleared for home. CM available if she has any d/c needs. Date Signed: 04/07/2018 11:23 AM Electronically Signed By:Eleni Frank RN [facility] CM Progress Note CM Note CM Note Notes: 04/10/2018 Case Management Note PT recommending home care. Met w/pt to discuss. Pt agreeable to referrals. Faxed referrals to multiple agencies d/t pt insurance. Anticipating d/c tomorrow. Case Management d/c poc: [facility] pending acceptance Case Management to follow. Date Signed: 04/10/2018 04:48 PM Electronically Signed By:Clare Dooley RN [facility] CM Progress Note CM Note CM Note Notes: Pts case discussed in tx rounds and w/ Dr. Pastor. CM met w/ pt for dispo planning. Pt is agreeable to going to SNF. CM provided pt w/ senior blue book. Pt would like referrals made to all the SNFs in [place]. [facility] is able to accept. Ophelia from [facility] stopped by and met w/ pt. [facility] will start getting auth. CM to follow. Plan: [facility] Date Signed: 04/11/2018 02:44 PM Electronically Signed By:LINCOLN Gandara Case Management Discharge Plan Note Case Management Discharge Discharge Order Complete? Answers: Yes Patient to Obtain Answers: Other Notes: [facility] Medications Transportation Arranged Answers: Other Notes: [place] w/c transport Transport will Pick (Date 04/12/2018 03:00 PM & Time) EMTALA Complete Answers: No Case Management Transport Answers: No Form Complete Faxed Final Orders Answers: Yes Agency/Facility Transfer Answers: Yes Report Printed & Faxed to Receiving Agency Family Notified Answers: No Discharge Comments Notes: Pts case discussed in tx rounds. Pt is being d/c'd today. [facility] was able to get auth. DC orders sent. CODY Dumont will call to give report. CM available for changes. Plan: [facility] Date Signed: 04/12/2018 01:33 PM Electronically Signed By:LINCOLN Gandara Intervention Information
[2018-04-12 13:48] VITALS: BP 109/64
[2018-04-13] MEDS ORDERED: SPIRONOLACTONE 25 MG TAB PO SCH (09:00)
--- NOTE | 2018-04-17 08:21 | PQFORM ---
PHYSICIAN QUERY FORM Needs Your Response This query form is being sent to you to assure this patient record is coded properly. Please respond to the question below: DIRECTOR OF [employer] QUESTION: Dear Dr. West, On admission, the patient was seen by Dr. Pastor. He states she is clinically consistent with poorly controlled hypertension. Dr. Arana states a need for ongoing intensive management of blood pressures, etc. He also documents uncontrolled hypertension in the outpatient setting at this time is improved with medication. Dr. Pastor continues to document that he wonders if the decline in LVEF is related to uncontrolled BP and/or viral exposure. The 04/10 progress note states hypertension - on Coreg, Imdur, valsartan, Aldactone, Lasix. Monitor for hypotension which she eventually developed. Based on these clinical findings, documentation, and your professional judgment, can any of the following be added to the discharge summary?: x__ Hypertensive heart disease with heart failure Hypertension Other Thank you for clarifying, BENSON [facility] HIM Coding INSTRUCTIONS FOR RESPONSE: Answer question by clicking on the "Edit Document" button. Move cursor to area below the stars. When complete, hit "Save." Click on the "Sign" button, then click "Sign" again. Type in your PIN and hit "Enter." MTDD
== END 2018-04-12 15:30 | DRG 291 ==
LOC: CED 13:35 → CEDHOLD 15:14 → INTOOBSV 15:14 → F2W 18:10 → OBSVTOIN 04-07 18:26
PROVIDERS: ADMIT Family Medicine; ATTEND Family Medicine
DX: I11.0 Hypertensive heart disease with heart failure (principal); I50.21 Acute systolic (congestive) heart failure; I42.9 Cardiomyopathy, unspecified; I95.9 Hypotension, unspecified; I25.10 Atherosclerotic heart disease of native coronary artery without angina pectoris; F32.9 Major depressive disorder, single episode, unspecified; Z95.5 Presence of coronary angioplasty implant and graft; Z95.0 Presence of cardiac pacemaker; Z85.3 Personal history of malignant neoplasm of breast; Z90.13 Acquired absence of bilateral breasts and nipples; Z79.82 Long term (current) use of aspirin; Z79.02 Long term (current) use of antithrombotics/antiplatelets
CPT/HCPCS: 71045-PO; 80048-ER; 84484-ER; 96374-ER; 97116-GP; 97161-GP; 97165-GO; 97530-GP; 97535-GO; A9500; G0378; J1650; J1940; J2785

== ENCOUNTER 2018-04-20 07:24 | Day surgery (SDC) | payer OTHER ==
[2018-04-20] MEDS ORDERED: diphenhydrAMINE 25 MG CAP PO ONE ×2 (07:26→07:39)
[2018-04-20] MEDS ORDERED: FAMOTIDINE 20 MG TAB PO ONE (07:26)
[2018-04-20] MEDS ORDERED: DIAZEPAM 5 MG TAB PO ONE (07:26)
[2018-04-20] MEDS ORDERED: NS 1,000 ML IV ONE (07:26)
[2018-04-20] MEDS ORDERED: ASPIRIN EC 325 MG TAB PO ONE ×2 (07:26→07:40)
[2018-04-20] MEDS ORDERED: FAMOTIDINE 20 MG TAB ONE (07:40)
[2018-04-20] MEDS ORDERED: DIAZEPAM 5 MG TAB ONE (07:40)
[2018-04-20 08:07] LABS: PLATELET COUNT 213 10^3/uL (150-400)
[2018-04-20 08:16] LABS: INR 1.01 (0.83-1.16); PROTIME(PATIENT) 13.5 SEC (12.0-15.0)
[2018-04-20] MEDS ORDERED: MIDAZOLAM 2 MG/2 ML VIAL ONE (09:00)
[2018-04-20] MEDS ORDERED: fentaNYL 100 MCG/2 ML INJ ONE (09:00)
[2018-04-20] MEDS ORDERED: LIDOCAINE 1% 300 MG/30 ML SDV ONE (09:00)
[2018-04-20] MEDS ORDERED: IOPAMIDOL (ISOVUE 370) 100 ML BTL IV ONE (09:01)
--- NOTE | 2018-04-20 10:52 | CPIP ---
DATE OF PROCEDURE: 04/20/2018 PROCEDURES: 1. Coronary angiography. 2. Left ventriculography. INDICATION: 1. Known coronary artery disease, status post stenting of left anterior descending coronary artery. 2. Recent progression of cardiomyopathy with ejection fraction decreasing from 45% down to 17% by ec hocardiography. ACCESS: Patient was prepped and draped in sterile fashion. 1% lidocaine was used to anesthetize the right inguinal region. A 6-Mozambican introducer sheath was placed selectively into the right common fe moral artery via modified Seldinger technique. CORONARY ANGIOGRAPHY: A 6-Mozambican JL4 was advanced to the left main coronary artery and images obtain ed. The left main coronary artery bifurcated into the LAD and circumflex coronary arteries. The lef t main coronary artery appeared normal. The left anterior descending coronary artery was diffusely d iseased. In the proximal segment of the vessel, there was a discrete 20-30 percent stenosis present. In the midportion of the vessel, a previously placed stent can be seen. The previously placed sten t is widely patent with no evidence of in-stent restenosis. In the distal vessel, a previously place d stent can be seen. The previously placed stent is widely patent with no evidence of in-stent reste nosis. The left anterior descending coronary artery gave rise to 1 diagonal branch. The diagonal br anch appeared free of any significant disease. The circumflex coronary artery is a large and dominan t vessel. The circumflex coronary artery had mild luminal irregularities throughout. There was no s tenosis greater than 10% to 20%. The first OM artery was a large vessel. The first OM artery had a proximal 30%-40% stenosis present. RIGHT CORONARY ARTERY: The right coronary artery was not injected as is known to be nondominant. LEFT VENTRICULOGRAPHY: A 6-Mozambican pigtail catheter was advanced in the left ventricle and images obt ained. Left ventricle is normal size. The ejection fraction was severely reduced at approximately 1 5%. There was anteroapical akinesis. The left ventricular end-diastolic pressure is elevated at 25 mm of Hg. BLOOD PRESSURES: The patient's blood pressure in her right arm was 131/61. Patient's blood pressure in left arm was 148/61. The patient appeared to have approximately a 20 mmHg gradient between her c entral pressure and her peripheral pressures. Suspect evidence of peripheral vascular disease. This could be evaluated with a CT angiogram. COMPLICATIONS: None. CONCLUSIONS: 1. Patent LAD stents with no evidence of in-stent restenosis. 2. Dcpd-ps-bsbtobvo coronary artery disease without flow limitation. 3. Severely reduced left ventricular systolic function with an estimated ejection fraction of 15%. 4. Discrepancy between arm pressures and central pressures raising concern for peripheral vascular d isease. Consider CT angiogram to further evaluate her condition. /[id number]/MODL
--- NOTE | 2018-04-20 11:35 | PDHPUP ---
History & Physical Update H&P update statement: This history and physical update is based on an assessment of the patient which was completed after admission or registration (within 24 hours), but prior to the surgery/procedure. H&P update: H&P reviewed & patient examined, no change in patient's condition since H&P completed
--- NOTE | 2018-04-20 11:35 | PDPROPOC ---
Sedation Plan of Care Sedation Plan of Care: vital signs stable, mental status noted, patient educated of risks, benefits, alternatives, patient can tolerate sedation ASA Classification: ASA 2 Planned drugs: fentanyl, midazolam Mallampati Score: Class 2 Mallampati Reference Image: Patient passed 3-3-2 rule?: Yes
[2018-04-20] MEDS ORDERED: ONDANSETRON 4 MG/2 ML VIAL IVP PRN (11:36)
[2018-04-20] MEDS ORDERED: NITROGLYCERIN 0.4 MG BTL SL PRN (11:36)
[2018-04-20] MEDS ORDERED: ATROPINE SULFATE 1 MG/10 ML SYR IVP PRN (11:36)
[2018-04-20] MEDS ORDERED: PERFLUTREN LIPID MICROSPHERES 1.1 MG/ML VIAL IV ONE (12:48)
--- NOTE | 2018-04-20 16:21 | ECHO ---
[email or web address] [id number] Main: [phone] Fax: Transthoracic Echocardiogram Name: GREGORY NUNES MR#: [id number] Study Date: 04/20/2018 Study Time: 01:02 PM Date of : 1935 Age: 82 year(s) Height: 160 cm (63 in.) Weight: 86.18 kg (190 lb.) BSA: 1.89 m2 Gender: Female Examination: Limited Echo with Definity Indication: limited echo with definity to rule out apical thrombus Image Quality: Adequate Contrast: 0.330 mg I.V. dose of Definity was administered to improve endocardial border definition. Requested by: Kurt Aden BP: 143 mmHg/63 mmHg Heart Rate: Rhythm: Indication: limited echo with definity to rule out apical thrombus Procedure Staff Water Tanker Driver: Johanna Ratliff [facility] Reading Physician: Kurt Aden MD Requesting Provider: Conclusions: Dilated left ventricle. Moderately to severely reduced systolic function. The ejection fraction is estimated to be 15 to 20 %. No LV apical thrombus. Measurements: Chambers Valvular Assessment AV/MV Valvular Assessment TV/PV Normal Normal Normal Name Value Range Name Value Range Name Value Range LVEF (BP): 23 % (>=55 %) EF Range: 15 to 20 % Continued Measurements: Findings: Left Ventricle: Dilated left ventricle. Moderately to severely reduced systolic function. The ejection fraction is estimated to be 15 to 20 %. No LV apical thrombus. Global hypokinesis. (No Signature Object) Patient: GREGORY NUNES Study Date: 04/20/2018 Page 1 of 1 01:02 PM [id number]
--- NOTE | 2018-04-20 20:52 | CPEKG ---
Test Reason : OPEN Blood Pressure : / mmHG Vent. Rate : 092 BPM Atrial Rate : 093 BPM P-R Int : 060 ms QRS Dur : 162 ms QT Int : 453 ms P-R-T Axes : 056 -47 -12 degrees QTc Int : 561 ms Atrial-sensed ventricular-paced rhythm Confirmed by Arpita Moss ([id number]) on 04/20/2018 8:52:35 PM Referred By: Kurt Alvarez Confirmed By:Arpita Moss
== END 2018-04-20 14:00 ==
LOC: FCATH 07:24
PROVIDERS: ATTEND Internal Medicine Cardiovascular Disease
DX: I42.9 Cardiomyopathy, unspecified (principal); I50.9 Heart failure, unspecified; I25.10 Atherosclerotic heart disease of native coronary artery without angina pectoris; I11.0 Hypertensive heart disease with heart failure; E78.5 Hyperlipidemia, unspecified; I49.5 Sick sinus syndrome; E78.00 Pure hypercholesterolemia, unspecified; Z95.0 Presence of cardiac pacemaker; Z95.5 Presence of coronary angioplasty implant and graft
CPT/HCPCS: 93005; 93458; C8924; C1760; J1644; J2250; J3010; Q9957; Q9967